=== PATIENT | female | born 1960 | race Caucasian/White ===

== ENCOUNTER 2017-06-11 21:55 | Emergency (ER) | payer MEDICAID ==
[~2017-06-11] VITALS: Ht 167.6 cm; Wt 68.0 kg
[~2017-06-11 21:55] MED LIST: DICL50TA9 PO; HYDR25TA PO
[2017-06-11 22:00] VITALS: BP 143/80
== END 2017-06-12 01:40 | disposition left against medical advice (07) ==
LOC: ER 22:54
DX: Z53.21 Procedure and treatment not carried out due to patient leaving prior to being seen by health care provider (principal); F17.210 Nicotine dependence, cigarettes, uncomplicated

== ENCOUNTER 2018-06-10 00:01 | Emergency (ER) | payer MEDICAID ==
[~2018-06-10] VITALS: Ht 160 cm; Wt 63.5 kg
[2018-06-10] MEDS ORDERED: MORPHINE SULFATE 4 MG/ML CPJ (NOT FOR IM USE) IV STA (02:43)
[2018-06-10] MEDS ORDERED: ONDANSETRON HCL 4MG/2ML VIAL IV STA (02:43)
[2018-06-10] MEDS ORDERED: FAMOTIDINE 20MG/2ML VIAL IV STA (02:43)
[2018-06-10] MEDS ORDERED: SODIUM CHLORIDE 0.9% 1,000 ML IV ONE (02:43)
[2018-06-10 02:55] LABS: BASOPHILS % 1.4 % (0.0-2.0); CHLORIDE 101 mEq/L (98-107); EOSINOPHILS % 2.1 % (0.0-5.0); HEMATOCRIT. 40.2 % (36.0-48.0); HEMOGLOBIN. 13.8 g/dL (12.0-16.0); LYMPHOCYTES % 50.3 % (20.0-50.0); MEAN CORPUSCULAR HEMOGLOBIN 33.2 pg (28.0-32.0); MEAN PLATELET VOLUME 8.4 fl (7.4-10.4); MONOCYTES % 9.6 % (2.0-8.0); NEUTROPHILS % 36.6 % (40.0-76.0); PLATELET 162 x1000/uL (130-400); RED BLOOD CELL COUNT 4.15 mill/uL (4.2-5.4); RED CELL DISTRIBUTION WIDTH 13.5 % (11.6-14.6)
[2018-06-10 03:45] LABS: CLARITY URINE CLEAR (CLEAR); COLOR URINE YELLOW (YELLOW); KETONES URINE NEGATIVE (NEGATIVE); LEUKOCYTE ESTERASE URINE NEGATIVE (NEGATIVE); NITRITE URINE NEGATIVE (NEGATIVE); OCCULT BLOOD URINE NEGATIVE (NEGATIVE); PROTEIN URINE NEGATIVE (NEGATIVE); SPECIFIC GRAVITY URINE 1.006 (1.005-1.030); UROBILINOGEN URINE 0.2 E.U./dL (0.2-1.0)
[2018-06-10 05:51] VITALS: BP 174/97
== END 2018-06-10 05:53 | disposition home or self-care (01) ==
LOC: ER 00:01
DX: R10.13 Epigastric pain (principal); R19.7 Diarrhea, unspecified; K76.0 Fatty (change of) liver, not elsewhere classified; Q61.01 Congenital single renal cyst; K21.9 Gastro-esophageal reflux disease without esophagitis; I10 Essential (primary) hypertension; I44.7 Left bundle-branch block, unspecified; F14.10 Cocaine abuse, uncomplicated; Z90.12 Acquired absence of left breast and nipple; Z88.1 Allergy status to other antibiotic agents; Z88.5 Allergy status to narcotic agent; Z85.3 Personal history of malignant neoplasm of breast; Z87.891 Personal history of nicotine dependence; F10.21 Alcohol dependence, in remission
CPT/HCPCS: 36415; 71045; 74177; 80053; 81003; 83605; 83690; 85025; 93005; 96361; 96374; 96375; 99285; J2270; J2405; J3490; J7030; Z7610

== ENCOUNTER 2018-11-26 02:43 | Emergency (ER) | payer MEDICAID ==
[~2018-11-26] VITALS: Ht 167.6 cm; Wt 63.0 kg
[2018-11-26] MEDS ORDERED: SODIUM CHLORIDE 0.9% 1,000 ML IV ONE (03:53)
[2018-11-26] MEDS ORDERED: LORAZEPAM 1MG TABLET PO ONE (04:00)
[2018-11-26 04:35] LABS: BASOPHILS % 1.2 % (0.0-2.0); EOSINOPHILS % 1.7 % (0.0-5.0); HEMATOCRIT. 42.5 % (36.0-48.0); HEMOGLOBIN. 14.4 g/dL (12.0-16.0); LYMPHOCYTES % 47.5 % (20.0-50.0); MEAN CORPUSCULAR HEMOGLOBIN 32.7 pg (28.0-32.0); MEAN CORPUSCULAR VOLUME 96.8 fL (81.0-99.0); MONOCYTES % 7.6 % (2.0-8.0); PLATELET 246 x1000/uL (130-400); RED BLOOD CELL COUNT 4.39 mill/uL (4.2-5.4); RED CELL DISTRIBUTION WIDTH 13.1 % (11.6-14.6)
[2018-11-26 04:44] LABS: CLARITY URINE CLEAR (CLEAR); COLOR URINE YELLOW (YELLOW); KETONES URINE NEGATIVE (NEGATIVE); LEUKOCYTE ESTERASE URINE NEGATIVE (NEGATIVE); NITRITE URINE NEGATIVE (NEGATIVE); OCCULT BLOOD URINE NEGATIVE (NEGATIVE); PROTEIN URINE NEGATIVE (NEGATIVE); SPECIFIC GRAVITY URINE 1.006 (1.005-1.030); UROBILINOGEN URINE 0.2 E.U./dL (0.2-1.0)
[2018-11-26 04:46] LABS: D-DIMER < 0.19 mg/L FEU (<0.50); INR 1.2; PROTHROMBIN TIME 12.3 sec (9.1-11.1)
[2018-11-26] MEDS ORDERED: LORAZEPAM 1MG TABLET PO NR (05:00)
[2018-11-26 05:01] LABS: CHLORIDE 102 mEq/L (98-107)
[2018-11-26 05:08] LABS: ETHANOL BLOOD 176 mg/dL
[2018-11-26 05:22] LABS: *AMPHETAMINES SCREEN URINE NEGATIVE (NEGATIVE); *BARBITURATES SCREEN URINE NEGATIVE (NEGATIVE)
[2018-11-26 05:23] LABS: *BENZODIAZEPINES SCREEN URINE NEGATIVE (NEGATIVE); *COCAINE SCREEN URINE PRESUMTIVE POSITIVE (NEGATIVE); METHADONE URINE SCREEN NEGATIVE (NEGATIVE); OPIATES URINE SCREEN NEGATIVE (NEGATIVE); PHENCYCLIDINE URINE SCREEN NEGATIVE (NEGATIVE)
[2018-11-26 05:24] LABS: CANNABINOID URINE SCREEN NEGATIVE (NEGATIVE)
[2018-11-26] MEDS ORDERED: ACETAMINOPHEN 325MG TABLET PO ONE (11:15)
[2018-11-26 15:30] VITALS: BP 163/72
== END 2018-11-26 15:53 | disposition home or self-care (01) ==
LOC: ER 02:43
DX: R07.89 Other chest pain (principal); R06.00 Dyspnea, unspecified; F41.9 Anxiety disorder, unspecified; I10 Essential (primary) hypertension; F14.10 Cocaine abuse, uncomplicated; Z90.12 Acquired absence of left breast and nipple; Z87.891 Personal history of nicotine dependence; Z88.5 Allergy status to narcotic agent; Z88.1 Allergy status to other antibiotic agents; Z79.899 Other long term (current) drug therapy
CPT/HCPCS: 36415; 71045; 80053; 80305; 80307; 80329; 81003; 83880; 84484; 85025; 85379; 85610; 99284; G0482; J7030

== ENCOUNTER 2019-02-06 02:13 | Emergency (ER) | payer MEDICAID ==
[~2019-02-06] VITALS: Ht 167.6 cm; Wt 64.0 kg
[2019-02-06] MEDS ORDERED: LORAZEPAM 1MG TABLET PO ONE (04:15)
[2019-02-06 04:17] LABS: CLARITY URINE CLEAR (CLEAR); COLOR URINE YELLOW (YELLOW); KETONES URINE NEGATIVE (NEGATIVE); LEUKOCYTE ESTERASE URINE 1+ (NEGATIVE); NITRITE URINE NEGATIVE (NEGATIVE); OCCULT BLOOD URINE NEGATIVE (NEGATIVE); PH URINE 7.5 (4.5-8.0); PROTEIN URINE NEGATIVE (NEGATIVE); SPECIFIC GRAVITY URINE 1.006 (1.005-1.030); UROBILINOGEN URINE 0.2 E.U./dL (0.2-1.0)
[2019-02-06 04:21] LABS: BASOPHILS % 1.1 % (0.0-2.0); EOSINOPHILS % 0.4 % (0.0-5.0); HEMATOCRIT. 38.3 % (36.0-48.0); HEMOGLOBIN. 13.3 g/dL (12.0-16.0); LYMPHOCYTES % 42.8 % (20.0-50.0); MEAN CORPUSCULAR HEMOGLOBIN 34.3 pg (28.0-32.0); MEAN CORPUSCULAR VOLUME 98.8 fL (81.0-99.0); MEAN PLATELET VOLUME 8.5 fl (7.4-10.4); MONOCYTES % 7.5 % (2.0-8.0); NEUTROPHILS % 48.2 % (40.0-76.0); PLATELET 182 x1000/uL (130-400); RED BLOOD CELL COUNT 3.88 mill/uL (4.2-5.4)
[2019-02-06 04:24] LABS: CHLORIDE 102 mEq/L (98-107)
[2019-02-06 04:29] LABS: ETHANOL BLOOD 154 mg/dL
[2019-02-06 04:38] LABS: *AMPHETAMINES SCREEN URINE PRESUMTIVE POSITIVE (NEGATIVE); *BARBITURATES SCREEN URINE NEGATIVE (NEGATIVE); *BENZODIAZEPINES SCREEN URINE NEGATIVE (NEGATIVE); *COCAINE SCREEN URINE PRESUMTIVE POSITIVE (NEGATIVE); CANNABINOID URINE SCREEN NEGATIVE (NEGATIVE)
[2019-02-06 04:39] LABS: METHADONE URINE SCREEN NEGATIVE (NEGATIVE); OPIATES URINE SCREEN NEGATIVE (NEGATIVE); PHENCYCLIDINE URINE SCREEN NEGATIVE (NEGATIVE)
[2019-02-06] MEDS ORDERED: IBUPROFEN 600MG TABLET PO STA (08:37)
[2019-02-06 10:07] VITALS: BP 134/71
== END 2019-02-06 11:53 | disposition home or self-care (01) ==
LOC: ER 02:13
DX: F19.10 Other psychoactive substance abuse, uncomplicated (principal); F10.129 Alcohol abuse with intoxication, unspecified; Y90.6 Blood alcohol level of 120-199 mg/100 ml; N39.0 Urinary tract infection, site not specified; F41.9 Anxiety disorder, unspecified; I10 Essential (primary) hypertension; F17.200 Nicotine dependence, unspecified, uncomplicated
CPT/HCPCS: 36415; 80305; 80307; 80320; 80329; 82962; 99283; G0480

== ENCOUNTER 2019-03-28 21:55 | Emergency (ER) | payer MEDICAID ==
[~2019-03-28] VITALS: Ht 165.1 cm; Wt 64.0 kg
[2019-03-28] MEDS ORDERED: CALCIUM GLUCONATE 100MG/ML 10ML VIAL IV ONE (23:30)
[2019-03-28] MEDS ORDERED: ASPIRIN 325MG EC TABLET PO ONE (23:30)
[2019-03-28 23:47] LABS: BASOPHILS % 0.8 % (0.0-2.0); HEMATOCRIT. 35.5 % (36.0-48.0); HEMOGLOBIN. 12.6 g/dL (12.0-16.0); LYMPHOCYTES % 27.7 % (20.0-50.0); MEAN CORPUSCULAR HEMOGLOBIN 35.6 pg (28.0-32.0); MEAN CORPUSCULAR VOLUME 100.4 fL (81.0-99.0); MEAN PLATELET VOLUME 8.4 fl (7.4-10.4); MONOCYTES % 11.2 % (2.0-8.0); NEUTROPHILS % 59.3 % (40.0-76.0); PLATELET 159 x1000/uL (130-400); RED BLOOD CELL COUNT 3.53 mill/uL (4.2-5.4); RED CELL DISTRIBUTION WIDTH 13.2 % (11.6-14.6)
[2019-03-28 23:52] LABS: CHLORIDE 105 mEq/L (98-107)
[2019-03-29 02:51] VITALS: BP 144/101
== END 2019-03-29 02:54 | disposition home or self-care (01) ==
LOC: ER 21:55
DX: F41.9 Anxiety disorder, unspecified (principal); R07.89 Other chest pain; I10 Essential (primary) hypertension; F14.10 Cocaine abuse, uncomplicated; Z90.10 Acquired absence of unspecified breast and nipple; Z88.5 Allergy status to narcotic agent; Z88.1 Allergy status to other antibiotic agents; Z79.899 Other long term (current) drug therapy
CPT/HCPCS: 36415; 71045; 80053; 83880; 84443; 84484; 85025; 93005; 96374; 99284; J0610; Z7610

== ENCOUNTER 2020-03-18 05:35 | Inpatient (IN) | payer MEDICAID ==
[~2020-03-18] VITALS: Ht 162.6 cm; Wt 54.4 kg
[2020-03-18] MEDS ORDERED: ACETAMINOPHEN 325MG TABLET PO ONE (07:45)
[2020-03-18] MEDS ORDERED: CHLORDIAZEPOXIDE 25MG CAPSULE PO ONE (07:45)
[2020-03-18] MEDS ORDERED: DIPHENHYDRAMINE 50MG/ML VIAL IV ONE ×2 (07:45→10:30)
[2020-03-18 08:09] LABS: BASOPHILS % 1.8 % (0.0-2.0); EOSINOPHILS % 1.9 % (0.0-5.0); HEMATOCRIT. 38.4 % (36.0-48.0); HEMOGLOBIN. 13.1 g/dL (12.0-16.0); LYMPHOCYTES % 20.3 % (20.0-50.0); MEAN CORPUSCULAR VOLUME 99.3 fL (81.0-99.0); MEAN PLATELET VOLUME 8.4 fl (7.4-10.4); MONOCYTES % 9.6 % (2.0-8.0); NEUTROPHILS % 66.4 % (40.0-76.0); PLATELET 197 x1000/uL (130-400); RED BLOOD CELL COUNT 3.86 mill/uL (4.2-5.4); RED CELL DISTRIBUTION WIDTH 13.8 % (11.6-14.6)
[2020-03-18 08:12] LABS: CHLORIDE 104 mEq/L (98-107)
[2020-03-18] MEDS ORDERED: CEFTRIAXONE 1 G PREMIX 50 ML IV ONE (09:15)
[2020-03-18] MEDS ORDERED: AZITHROMYCIN 500 MG in DEXT 5% WATER 250 ML IV SCH (09:15)
[2020-03-18] MEDS ORDERED: ASPIRIN 325MG EC TABLET PO ONE (09:30)
[2020-03-18] MEDS ORDERED: ACETAMINOPHEN 325MG TABLET PO PRN (09:45)
[2020-03-18] MEDS ORDERED: CLONIDINE 0.1MG TABLET PO PRN (09:45)
[2020-03-18] MEDS ORDERED: IPRATROPIUM/ALBUTEROL 0.5-3(2.5)MG/3ML NEB HHN PRN (09:45)
[2020-03-18] MEDS ORDERED: ONDANSETRON HCL 4MG/2ML INJ IV PRN (09:45)
[2020-03-18 09:57] LABS: PHOSPHORUS 3.1 mg/dL (2.5-4.9)
[2020-03-18 13:40] VITALS: BP 154/102
[2020-03-18] MEDS ORDERED: LORAZEPAM 2MG/ML CPJ IV PRN (13:45)
[2020-03-18] MEDS ORDERED: ASPIRIN 81MG EC TABLET PO SCH (13:45)
[2020-03-18] MEDS: ENOXAPARIN 40MG/0.4ML SYR SUBCUT SCH (14:53)
[2020-03-18] MEDS: FUROSEMIDE 40MG/4ML VIAL IVP SCH ×2 (14:53→21:01)
[2020-03-18] MEDS: THIAMINE HCL 100MG TABLET PO SCH (14:54)
[2020-03-18] MEDS: POTASSIUM CHLORIDE 20MEQ TABLET SR PO SCH (14:54)
[2020-03-18] MEDS: CHLORDIAZEPOXIDE 25MG CAPSULE PO SCH ×2 (14:54→20:56)
[2020-03-18] MEDS: DIPHENHYDRAMINE 50MG/ML VIAL IV PRN (16:21)
[2020-03-18] MEDS: MULTIVITAMINS,THER W-MINERALS TABLET PO SCH (16:21)
[2020-03-18] MEDS: FOLIC ACID 1MG TABLET PO SCH (16:21)
[2020-03-18] MEDS: HYDROCODONE/ACETAMINOPHEN 5/325MG TABLET PO PRN (17:23)
[2020-03-18 20:00] VITALS: BP 134/99
[2020-03-18] MEDS: AMLODIPINE 5MG TABLET PO SCH (20:57)
[2020-03-18] MEDS: ATORVASTATIN CALCIUM 20MG TABLET PO SCH (20:57)
[2020-03-18 21:48] LABS: CLARITY URINE CLEAR (CLEAR); COLOR URINE YELLOW (YELLOW); KETONES URINE NEGATIVE (NEGATIVE); LEUKOCYTE ESTERASE URINE NEGATIVE (NEGATIVE); NITRITE URINE NEGATIVE (NEGATIVE); OCCULT BLOOD URINE NEGATIVE (NEGATIVE); PROTEIN URINE NEGATIVE (NEGATIVE); SPECIFIC GRAVITY URINE 1.006 (1.005-1.030); UROBILINOGEN URINE 0.2 E.U./dL (0.2-1.0)
[2020-03-18 22:01] LABS: *AMPHETAMINES SCREEN URINE NEGATIVE (NEGATIVE); *BARBITURATES SCREEN URINE NEGATIVE (NEGATIVE); *BENZODIAZEPINES SCREEN URINE NEGATIVE (NEGATIVE); *COCAINE SCREEN URINE PRESUMTIVE POSITIVE (NEGATIVE)
[2020-03-18 22:02] LABS: CANNABINOID URINE SCREEN NEGATIVE (NEGATIVE); METHADONE URINE SCREEN NEGATIVE (NEGATIVE); OPIATES URINE SCREEN NEGATIVE (NEGATIVE); PHENCYCLIDINE URINE SCREEN NEGATIVE (NEGATIVE)
[2020-03-19] VITALS: BP 135/92
[2020-03-19 04:00] VITALS: BP 114/78
[2020-03-19] MEDS: CHLORDIAZEPOXIDE 25MG CAPSULE PO SCH ×3 (06:14→21:22)
[2020-03-19 07:20] LABS: BASOPHILS % 1.5 % (0.0-2.0); HEMATOCRIT. 40.6 % (36.0-48.0); HEMOGLOBIN. 13.5 g/dL (12.0-16.0); LYMPHOCYTES % 31.6 % (20.0-50.0); MEAN CORPUSCULAR HEMOGLOBIN 33.2 pg (28.0-32.0); MEAN CORPUSCULAR VOLUME 99.9 fL (81.0-99.0); MEAN PLATELET VOLUME 8.1 fl (7.4-10.4); MONOCYTES % 9.8 % (2.0-8.0); NEUTROPHILS % 54.1 % (40.0-76.0); PLATELET 185 x1000/uL (130-400); RED BLOOD CELL COUNT 4.06 mill/uL (4.2-5.4); RED CELL DISTRIBUTION WIDTH 13.9 % (11.6-14.6)
[2020-03-19 07:38] LABS: CHLORIDE 107 mEq/L (98-107)
[2020-03-19 07:51] LABS: TOTAL IRON BINDING CAPACITY 470 ug/dL (250-450)
[2020-03-19 07:52] LABS: LDL CHOLESTEROL 55 mg/dL (5-100)
[2020-03-19 07:53] LABS: HDL CHOLESTEROL 33 mg/dL (40-59)
[2020-03-19 08:00] VITALS: BP 118/74
[2020-03-19 08:08] LABS: VITAMIN B12 SERUM 516 pg/mL (211-911)
[2020-03-19] MEDS: FUROSEMIDE 40MG/4ML VIAL IVP SCH ×2 (09:25→19:04)
[2020-03-19] MEDS: POTASSIUM CHLORIDE 20MEQ TABLET SR PO SCH (09:25)
[2020-03-19] MEDS: AZITHROMYCIN 250 MG TABLET PO SCH (09:26)
[2020-03-19] MEDS: FOLIC ACID 1MG TABLET PO SCH (09:26)
[2020-03-19] MEDS: AMLODIPINE 5MG TABLET PO SCH ×2 (09:26→21:23)
[2020-03-19] MEDS: THIAMINE HCL 100MG TABLET PO SCH (09:26)
[2020-03-19] MEDS: ASPIRIN 81MG EC TABLET PO SCH (09:26)
[2020-03-19] MEDS: MULTIVITAMINS,THER W-MINERALS TABLET PO SCH (09:26)
[2020-03-19] MEDS: CEFTRIAXONE 1 G PREMIX 50 ML IV SCH (09:27)
[2020-03-19] MEDS: DIPHENHYDRAMINE 50MG/ML VIAL IV PRN (10:27)
[2020-03-19] MEDS: FERROUS SULFATE 325MG TABLET PO SCH ×2 (11:58→19:04)
[2020-03-19 12:00] VITALS: BP 120/88
[2020-03-19] MEDS: ENOXAPARIN 40MG/0.4ML SYR SUBCUT SCH (13:55)
[2020-03-19 16:00] VITALS: BP_SYST 118; BP_SYST 120; BP_DIAS 69; BP_DIAS 88
[2020-03-19] MEDS: HYDROCODONE/ACETAMINOPHEN 5/325MG TABLET PO PRN (19:58)
[2020-03-19 20:30] VITALS: BP 163/109
[2020-03-19] MEDS ORDERED: MAGNESIUM HYDROXIDE 400MG/5ML 30ML UDC PO PRN (21:15)
[2020-03-19] MEDS: ATORVASTATIN CALCIUM 20MG TABLET PO SCH (21:23)
[2020-03-19] MEDS ORDERED: MORPHINE SULFATE 2 MG/ML CPJ (NOT FOR IM USE) IV SCH (21:30)
[2020-03-19] MEDS ORDERED: MORPHINE SULFATE 2 MG/ML CPJ (NOT FOR IM USE) IV PRN (21:30)
[2020-03-20] VITALS: BP 123/83
[2020-03-20] MEDS: DIPHENHYDRAMINE 50MG/ML VIAL IV PRN ×2 (02:18→08:51)
[2020-03-20 04:00] VITALS: BP 109/69
[2020-03-20] MEDS: CHLORDIAZEPOXIDE 25MG CAPSULE PO SCH ×3 (06:05→21:28)
[2020-03-20] MEDS: FERROUS SULFATE 325MG TABLET PO SCH ×2 (07:07→16:38)
[2020-03-20 08:00] VITALS: BP 120/90
[2020-03-20 08:03] LABS: BASOPHILS % 0.9 % (0.0-2.0); EOSINOPHILS % 1.2 % (0.0-5.0); HEMATOCRIT. 41.3 % (36.0-48.0); HEMOGLOBIN. 13.8 g/dL (12.0-16.0); LYMPHOCYTES % 16.4 % (20.0-50.0); MEAN CORPUSCULAR HEMOGLOBIN 33.4 pg (28.0-32.0); MEAN CORPUSCULAR VOLUME 99.7 fL (81.0-99.0); MEAN PLATELET VOLUME 8.4 fl (7.4-10.4); MONOCYTES % 11.6 % (2.0-8.0); NEUTROPHILS % 69.9 % (40.0-76.0); PLATELET 213 x1000/uL (130-400); RED BLOOD CELL COUNT 4.15 mill/uL (4.2-5.4); RED CELL DISTRIBUTION WIDTH 13.8 % (11.6-14.6)
[2020-03-20] MEDS: MULTIVITAMINS,THER W-MINERALS TABLET PO SCH (08:52)
[2020-03-20] MEDS: POTASSIUM CHLORIDE 20MEQ TABLET SR PO SCH (08:52)
[2020-03-20] MEDS: ASPIRIN 81MG EC TABLET PO SCH (08:52)
[2020-03-20] MEDS: AZITHROMYCIN 250 MG TABLET PO SCH (08:52)
[2020-03-20] MEDS: FUROSEMIDE 40MG/4ML VIAL IVP SCH ×2 (08:52→16:38)
[2020-03-20] MEDS: THIAMINE HCL 100MG TABLET PO SCH (08:52)
[2020-03-20] MEDS: FOLIC ACID 1MG TABLET PO SCH (08:52)
[2020-03-20] MEDS: AMLODIPINE 5MG TABLET PO SCH ×2 (08:53→21:00)
[2020-03-20] MEDS: CEFTRIAXONE 1 G PREMIX 50 ML IV SCH (09:00)
[2020-03-20] MEDS ORDERED: CEFTRIAXONE 1 G PREMIX 50 ML IV SCH (09:15)
[2020-03-20] MEDS: NITROGLYCERIN OINT 1GM/INCH UDPKT TD SCH ×3 (10:25→21:29)
[2020-03-20] MEDS ORDERED: POTASSIUM CHLORIDE 20MEQ TABLET SR PO NR (11:15)
[2020-03-20 12:00] VITALS: BP 129/90
[2020-03-20 16:00] VITALS: BP 134/87
[2020-03-20 20:00] VITALS: BP 101/54
[2020-03-20] MEDS ORDERED: ENOXAPARIN 60MG/0.6ML SYR SUBCUT NR (21:00)
[2020-03-20] MEDS: ATORVASTATIN CALCIUM 20MG TABLET PO SCH (21:28)
[2020-03-21] VITALS (13 sets, daily range): BP systolic 77–128; BP diastolic 22–98
[2020-03-21] MEDS: CHLORDIAZEPOXIDE 25MG CAPSULE PO SCH ×2 (05:54→14:33)
[2020-03-21] MEDS: NITROGLYCERIN OINT 1GM/INCH UDPKT TD SCH ×2 (06:17→14:00)
[2020-03-21] MEDS: FERROUS SULFATE 325MG TABLET PO SCH (06:17)
[2020-03-21 07:46] LABS: BASOPHILS % 1.4 % (0.0-2.0); EOSINOPHILS % 2.4 % (0.0-5.0); HEMATOCRIT. 42.8 % (36.0-48.0); HEMOGLOBIN. 14.2 g/dL (12.0-16.0); LYMPHOCYTES % 19.5 % (20.0-50.0); MEAN CORPUSCULAR HEMOGLOBIN 33.1 pg (28.0-32.0); MEAN CORPUSCULAR VOLUME 99.9 fL (81.0-99.0); MONOCYTES % 6.8 % (2.0-8.0); NEUTROPHILS % 69.9 % (40.0-76.0); PLATELET 209 x1000/uL (130-400); RED BLOOD CELL COUNT 4.29 mill/uL (4.2-5.4); RED CELL DISTRIBUTION WIDTH 14.4 % (11.6-14.6)
[2020-03-21 07:58] LABS: PHOSPHORUS 3.3 mg/dL (2.5-4.9)
[2020-03-21] MEDS ORDERED: SODIUM CHLORIDE 0.45% 1,000 ML IV SCH (08:00)
[2020-03-21] MEDS: FUROSEMIDE 40MG/4ML VIAL IVP SCH (08:23)
[2020-03-21] MEDS: MULTIVITAMINS,THER W-MINERALS TABLET PO SCH (09:00)
[2020-03-21] MEDS: POTASSIUM CHLORIDE 20MEQ TABLET SR PO SCH (09:00)
[2020-03-21] MEDS: FOLIC ACID 1MG TABLET PO SCH (09:00)
[2020-03-21] MEDS: ASPIRIN 81MG EC TABLET PO SCH (09:00)
[2020-03-21] MEDS: THIAMINE HCL 100MG TABLET PO SCH (09:00)
[2020-03-21] MEDS: AMLODIPINE 5MG TABLET PO SCH (09:00)
[2020-03-21] MEDS ORDERED: IOHEXOL-300 100 ML BOTTLE ONE (09:21)
[2020-03-21] MEDS ORDERED: LIDOCAINE HCL 1% 20ML VIAL (Pyxis) INJ ONE (09:22)
[2020-03-21] MEDS ORDERED: MIDAZOLAM HCL 2 MG/2 ML VIAL ONE ×2 (09:23→10:28)
[2020-03-21] MEDS ORDERED: FENTANYL CITRATE/PF 50MCG/ML 2ML VIAL ONE (09:23)
[2020-03-21] MEDS ORDERED: ONDANSETRON HCL 4MG/2ML INJ IV PRN (10:45)
[2020-03-21] MEDS ORDERED: ATROPINE SULFATE 1MG/10ML SYR IV PRN (10:45)
[2020-03-21] MEDS ORDERED: ACETAMINOPHEN 325MG TABLET PO PRN (10:45)
[2020-03-21] MEDS ORDERED: MAGNESIUM OXIDE 400MG TABLET PO SCH (13:00)
[2020-03-21] MEDS ORDERED: IRON SUCROSE COMPLEX 100 MG/5 ML ML IV SCH (13:00)
[2020-03-21] MEDS ORDERED: FURO40TA5 MT (15:17)
[2020-03-21] MEDS ORDERED: MULT-230 MT (15:17)
[2020-03-21] MEDS ORDERED: FERR325T23 PO (15:17)
[2020-03-21] MEDS ORDERED: THIA100T72 MT (15:17)
[2020-03-21] MEDS ORDERED: AMLO5TAB88 PO (15:17)
[2020-03-21] MEDS ORDERED: ATOR20TA PO (15:17)
[2020-03-21] MEDS ORDERED: ASPI-1158 PO (15:17)
== END 2020-03-21 17:46 | disposition left against medical advice (07) | DRG 720 ==
LOC: ER 05:50 → 7WST 09:30 → EDBEDREQ 09:37 → ENRESERV 12:24 → 5WST 03-20 00:27 → 3WST 03-21 11:39
PROVIDERS: ADMIT Internal Medicine; ATTEND Internal Medicine
PROC: 4A023N7 Measurement of Cardiac Sampling and Pressure, Left Heart, Percutaneous Approach (ICD-10-PCS; principal; 2020-03-21)
PROC: B2111ZZ Fluoroscopy of Multiple Coronary Arteries using Low Osmolar Contrast (ICD-10-PCS; 2020-03-21)
PROC: B2151ZZ Fluoroscopy of Left Heart using Low Osmolar Contrast (ICD-10-PCS; 2020-03-21)
DX: A41.9 Sepsis, unspecified organism (principal); J96.00 Acute respiratory failure, unspecified whether with hypoxia or hypercapnia; I21.4 Non-ST elevation (NSTEMI) myocardial infarction; I50.23 Acute on chronic systolic (congestive) heart failure; I42.0 Dilated cardiomyopathy; D50.9 Iron deficiency anemia, unspecified; F10.20 Alcohol dependence, uncomplicated; I11.0 Hypertensive heart disease with heart failure; J68.0 Bronchitis and pneumonitis due to chemicals, gases, fumes and vapors; E87.6 Hypokalemia; F14.90 Cocaine use, unspecified, uncomplicated; F41.9 Anxiety disorder, unspecified; I44.7 Left bundle-branch block, unspecified; T40.5X1A Poisoning by cocaine, accidental (unintentional), initial encounter; R56.9 Unspecified convulsions; Z85.3 Personal history of malignant neoplasm of breast; Z90.12 Acquired absence of left breast and nipple; Z91.14 Patient's other noncompliance with medication regimen; Z88.5 Allergy status to narcotic agent; Z88.8 Allergy status to other drugs, medicaments and biological substances; Z79.899 Other long term (current) drug therapy; Z03.818 Encounter for observation for suspected exposure to other biological agents ruled out; Y92.89 Other specified places as the place of occurrence of the external cause
CPT/HCPCS: 36415; 71045; 80048; 80053; 80061; 80305; 81003; 82607; 82728; 83540; 83550; 83735; 83880; 84100; 84443; 84484; 85025; 93005; 93306; 93458; 93970; 99285; C1760; C1769; C1887; C1893; J0456; J0696; J1200; J1644; J1650; J1940; J2060; J2250; J2270; J2405; J3010; J3490; J7060; Q9967; U0003-CS

== ENCOUNTER 2020-08-17 21:57 | Emergency (ER) | payer MEDICAID ==
[~2020-08-17] VITALS: Ht 167.6 cm; Wt 84.0 kg
[~2020-08-17 21:57] MED LIST changes: +AMLO5TAB88 PO; +ASPI-1158 PO; +ATOR20TA PO; +FERR325T23 PO; +FURO40TA5 MT; +MULT-230 MT; +THIA100T72 MT
[2020-08-17 22:02] VITALS: BP 137/77
== END 2020-08-17 22:47 | disposition left against medical advice (07) ==
LOC: ER 21:57
DX: Z53.21 Procedure and treatment not carried out due to patient leaving prior to being seen by health care provider (principal)

== ENCOUNTER 2022-08-21 16:40 | Inpatient (IN) | payer MEDICAID ==
[~2022-08-21] VITALS: Ht 152.4 cm; Wt 75.3 kg
[~2022-08-21 16:40] MED LIST changes: -ASPI-1158 PO; +ASPI-1406 PO
[2022-08-21 17:56] LABS: BASOPHILS % 0.9 % (0.0-2.0); EOSINOPHILS % 2.3 % (0.0-5.0); HEMATOCRIT. 36.6 % (36.0-48.0); HEMOGLOBIN. 12.4 g/dL (12.0-16.0); LYMPHOCYTES % 22.9 % (20.0-50.0); MEAN CORPUSCULAR HEMOGLOBIN 34.6 pg (28.0-32.0); MEAN CORPUSCULAR VOLUME 102.2 fL (81.0-99.0); MEAN PLATELET VOLUME 8.3 fl (7.4-10.4); MONOCYTES % 7.7 % (2.0-8.0); NEUTROPHILS % 66.2 % (40.0-76.0); PLATELET 163 x1000/uL (130-400); RED BLOOD CELL COUNT 3.58 mill/uL (4.2-5.4); RED CELL DISTRIBUTION WIDTH 13.6 % (11.6-14.6)
[2022-08-21 17:59] LABS: CHLORIDE 104 mEq/L (98-107)
[2022-08-21 18:10] LABS: ETHANOL BLOOD 207 mg/dL
[2022-08-21] MEDS ORDERED: FUROSEMIDE 20MG/2ML VIAL IVP ONE (19:00)
[2022-08-21 19:01] LABS: *AMPHETAMINES SCREEN URINE NEGATIVE (NEGATIVE); *BARBITURATES SCREEN URINE NEGATIVE (NEGATIVE); *BENZODIAZEPINES SCREEN URINE NEGATIVE (NEGATIVE); *COCAINE SCREEN URINE PRESUMTIVE POSITIVE (NEGATIVE); CANNABINOID URINE SCREEN NEGATIVE (NEGATIVE); METHADONE URINE SCREEN NEGATIVE (NEGATIVE); OPIATES URINE SCREEN NEGATIVE (NEGATIVE); PHENCYCLIDINE URINE SCREEN NEGATIVE (NEGATIVE)
[2022-08-21] MEDS ORDERED: POTASSIUM CHLORIDE 20MEQ TABLET SR PO NR ×2 (19:30→21:45)
[2022-08-21] MEDS ORDERED: FUROSEMIDE 20MG/2ML VIAL IVP NR (22:00)
[2022-08-22] VITALS (7 sets, daily range): BP systolic 117–189; BP diastolic 86–108
[2022-08-22] MEDS ORDERED: PNEUMOCOCCAL 23-VAL P-SAC VAC 0.5 ML IM ONE (05:00)
[2022-08-22] MEDS ORDERED: INFLUENZA VACCINE 05/PF 0.5 ML SYRINGE IM ONE (05:00)
[2022-08-22] MEDS ORDERED: HYDROCODONE/ACETAMINOPHEN 5/325MG TABLET PO PRN (05:00)
[2022-08-22] MEDS ORDERED: CLONIDINE 0.1MG TABLET PO PRN (05:00)
[2022-08-22] MEDS ORDERED: POTASSIUM CHLORIDE 20MEQ TABLET SR PO NR (10:00)
[2022-08-22] MEDS: FUROSEMIDE 40MG/4ML VIAL IVP SCH ×2 (11:00→17:30)
[2022-08-22] MEDS: AMLODIPINE 10MG TABLET PO SCH (11:00)
[2022-08-22] MEDS: SPIRONOLACTONE 50MG TABLET PO SCH (11:01)
[2022-08-22] MEDS: HYDRALAZINE HCL 25MG TABLET PO SCH ×2 (13:15→21:37)
[2022-08-22] MEDS: SACUBITRIL/VALSARTAN 24MG/26MG TABLET PO SCH ×2 (13:15→17:30)
[2022-08-22 13:53] LABS: BASOPHILS % 0.8 % (0.0-2.0); HEMATOCRIT. 41.8 % (36.0-48.0); HEMOGLOBIN. 14.1 g/dL (12.0-16.0); LYMPHOCYTES % 20.5 % (20.0-50.0); MEAN CORPUSCULAR HEMOGLOBIN 34.2 pg (28.0-32.0); MEAN CORPUSCULAR VOLUME 101.3 fL (81.0-99.0); MEAN PLATELET VOLUME 8.9 fl (7.4-10.4); MONOCYTES % 6.5 % (2.0-8.0); NEUTROPHILS % 69.2 % (40.0-76.0); PLATELET 185 x1000/uL (130-400); RED BLOOD CELL COUNT 4.12 mill/uL (4.2-5.4)
[2022-08-22] MEDS: FOLIC ACID 1MG TABLET PO SCH (17:30)
[2022-08-22] MEDS: PANTOPRAZOLE 40MG DR TABLET PO SCH (17:31)
[2022-08-22] MEDS: MULTIVITAMINS,THER W-MINERALS TABLET PO SCH (17:31)
[2022-08-22] MEDS: THIAMINE HCL 100MG TABLET PO SCH (17:31)
[2022-08-23] VITALS: BP 117/90
[2022-08-23 04:00] VITALS: BP 134/93
[2022-08-23 06:26] LABS: BASOPHILS % 0.8 % (0.0-2.0); EOSINOPHILS % 2.9 % (0.0-5.0); HEMATOCRIT. 46.6 % (36.0-48.0); HEMOGLOBIN. 15.7 g/dL (12.0-16.0); LYMPHOCYTES % 21.5 % (20.0-50.0); MEAN CORPUSCULAR HEMOGLOBIN 34.4 pg (28.0-32.0); MEAN CORPUSCULAR VOLUME 101.9 fL (81.0-99.0); MEAN PLATELET VOLUME 9.1 fl (7.4-10.4); MONOCYTES % 6.7 % (2.0-8.0); NEUTROPHILS % 68.1 % (40.0-76.0); PLATELET 201 x1000/uL (130-400); RED BLOOD CELL COUNT 4.57 mill/uL (4.2-5.4); RED CELL DISTRIBUTION WIDTH 14.2 % (11.6-14.6)
[2022-08-23] MEDS ORDERED: HYDROCODONE/ACETAMINOPHEN 5/325MG TABLET PO PRN (06:30)
[2022-08-23] MEDS ORDERED: MAGNESIUM/ALUMINUM HYDROXIDE/SIMETHICONE 30ML UDC PO PRN (06:30)
[2022-08-23] MEDS: HYDRALAZINE HCL 25MG TABLET PO SCH ×3 (06:33→22:05)
[2022-08-23] MEDS: FUROSEMIDE 40MG/4ML VIAL IVP SCH ×2 (06:34→17:15)
[2022-08-23 06:41] LABS: CHLORIDE 95 mEq/L (98-107)
[2022-08-23 08:00] VITALS: BP 103/64
[2022-08-23] MEDS ORDERED: TRAMADOL 50MG TABLET PO PRN (08:00)
[2022-08-23] MEDS ORDERED: NALOXONE HCL 0.4MG/ML VIAL IV PRN (08:15)
[2022-08-23] MEDS: AMLODIPINE 10MG TABLET PO SCH (09:00)
[2022-08-23] MEDS: CHLORDIAZEPOXIDE 25MG CAPSULE PO SCH ×3 (09:07→22:05)
[2022-08-23] MEDS: SACUBITRIL/VALSARTAN 24MG/26MG TABLET PO SCH ×2 (09:07→17:00)
[2022-08-23] MEDS: MULTIVITAMINS,THER W-MINERALS TABLET PO SCH (09:08)
[2022-08-23] MEDS: PANTOPRAZOLE 40MG DR TABLET PO SCH (09:08)
[2022-08-23] MEDS: SPIRONOLACTONE 50MG TABLET PO SCH (09:08)
[2022-08-23] MEDS: FOLIC ACID 1MG TABLET PO SCH (09:08)
[2022-08-23] MEDS: THIAMINE HCL 100MG TABLET PO SCH (09:08)
[2022-08-23] MEDS ORDERED: POTASSIUM CHLORIDE 20MEQ TABLET SR PO NR (09:15)
[2022-08-23] MEDS ORDERED: MAGNESIUM 2 G PREMIX 50 ML IV NR (10:00)
[2022-08-23] MEDS ORDERED: HYDR-4134 PO (11:28)
[2022-08-23] MEDS ORDERED: L25 MT (11:28)
[2022-08-23] MEDS ORDERED: ALD50 PO (11:28)
[2022-08-23] MEDS ORDERED: FOLI-43 PO (11:28)
[2022-08-23 12:00] VITALS: BP 114/72
[2022-08-23 20:00] VITALS: BP 110/78
[2022-08-24] VITALS: BP 113/71
[2022-08-24 04:00] VITALS: BP 126/83
[2022-08-24] MEDS: FUROSEMIDE 40MG/4ML VIAL IVP SCH (07:02)
[2022-08-24] MEDS: CHLORDIAZEPOXIDE 25MG CAPSULE PO SCH ×2 (07:03→14:10)
[2022-08-24] MEDS: HYDRALAZINE HCL 25MG TABLET PO SCH ×2 (07:03→14:10)
[2022-08-24 07:49] LABS: BASOPHILS % 0.9 % (0.0-2.0); EOSINOPHILS % 3.7 % (0.0-5.0); HEMATOCRIT. 43.4 % (36.0-48.0); HEMOGLOBIN. 14.3 g/dL (12.0-16.0); LYMPHOCYTES % 20.9 % (20.0-50.0); MEAN CORPUSCULAR HEMOGLOBIN 33.8 pg (28.0-32.0); MEAN CORPUSCULAR VOLUME 102.5 fL (81.0-99.0); MEAN PLATELET VOLUME 9.3 fl (7.4-10.4); MONOCYTES % 8.8 % (2.0-8.0); NEUTROPHILS % 65.7 % (40.0-76.0); PLATELET 190 x1000/uL (130-400); RED BLOOD CELL COUNT 4.23 mill/uL (4.2-5.4); RED CELL DISTRIBUTION WIDTH 14.2 % (11.6-14.6)
[2022-08-24 08:00] VITALS: BP 130/90
[2022-08-24] MEDS: THIAMINE HCL 100MG TABLET PO SCH (09:00)
[2022-08-24] MEDS: SPIRONOLACTONE 50MG TABLET PO SCH (09:00)
[2022-08-24] MEDS: AMLODIPINE 10MG TABLET PO SCH (09:00)
[2022-08-24] MEDS ORDERED: FAMOTIDINE 20MG TABLET PO SCH (09:00)
[2022-08-24] MEDS: MULTIVITAMINS,THER W-MINERALS TABLET PO SCH (09:00)
[2022-08-24] MEDS: SACUBITRIL/VALSARTAN 24MG/26MG TABLET PO SCH (09:00)
[2022-08-24] MEDS: FOLIC ACID 1MG TABLET PO SCH (09:00)
[2022-08-24 11:57] VITALS: BP 115/77
[2022-08-24 14:16] VITALS: BP 115/77
[2022-08-24 16:00] VITALS: BP 124/73
== END 2022-08-24 16:42 | disposition home or self-care (01) | DRG 816 ==
LOC: ER 16:40 → MICUSO 18:59 → EDBEDREQTM 19:07 → EDBEDREQ 19:07 → ENRESERV 22:05 → 7WST 08-22 02:35
PROVIDERS: ADMIT Internal Medicine; ATTEND Internal Medicine
PROC: 4B02XTZ Measurement of Cardiac Defibrillator, External Approach (ICD-10-PCS; principal; 2022-08-22)
DX: T40.5X1A Poisoning by cocaine, accidental (unintentional), initial encounter (principal); I50.23 Acute on chronic systolic (congestive) heart failure; I47.20 Ventricular tachycardia, unspecified; I42.0 Dilated cardiomyopathy; R07.89 Other chest pain; I11.0 Hypertensive heart disease with heart failure; F14.10 Cocaine abuse, uncomplicated; I16.0 Hypertensive urgency; F10.229 Alcohol dependence with intoxication, unspecified; R74.01 Elevation of levels of liver transaminase levels; E87.6 Hypokalemia; Z87.891 Personal history of nicotine dependence; Z85.3 Personal history of malignant neoplasm of breast; Z95.810 Presence of automatic (implantable) cardiac defibrillator; Z90.12 Acquired absence of left breast and nipple; Z91.14 Patient's other noncompliance with medication regimen
CPT/HCPCS: 36415; 71045; 80048; 80053; 80061; 80305; 80320; 83735; 83880; 84484; 85025; 90686; 90732; 93005; 93306; 99285; J1940; J3475; G0480

== ENCOUNTER 2022-10-26 16:58 | Emergency (ER) | payer MEDICAID ==
[~2022-10-26] VITALS: Ht 160 cm; Wt 63.0 kg
[~2022-10-26 16:58] MED LIST changes: +ALD50 PO; +FOLI-43 PO; +HYDR-4134 PO; -HYDR25TA PO; +L25 MT
[2022-10-26 17:08] VITALS: BP 159/99
[2022-10-26 22:52] LABS: CLARITY URINE CLEAR (CLEAR); COLOR URINE YELLOW (YELLOW); KETONES URINE NEGATIVE (NEGATIVE); LEUKOCYTE ESTERASE URINE 2+ (NEGATIVE); NITRITE URINE NEGATIVE (NEGATIVE); OCCULT BLOOD URINE 1+ (NEGATIVE); PROTEIN URINE NEGATIVE (NEGATIVE); SPECIFIC GRAVITY URINE 1.006 (1.005-1.030)
[2022-10-26] MEDS ORDERED: NITR-87 MT (23:28)
[2022-10-26] MEDS ORDERED: HYDR453.3 TP (23:28)
[2022-10-29 10:11] LABS: NEISSERIA GONORRHOEAE NAA Negative (Negative)
== END 2022-10-26 23:40 | disposition home or self-care (01) ==
LOC: ER 16:58
DX: N39.0 Urinary tract infection, site not specified (principal); R21 Rash and other nonspecific skin eruption; I11.9 Hypertensive heart disease without heart failure; M19.90 Unspecified osteoarthritis, unspecified site; Z85.3 Personal history of malignant neoplasm of breast; Z88.3 Allergy status to other anti-infective agents; Z88.6 Allergy status to analgesic agent; Z95.0 Presence of cardiac pacemaker; Z79.82 Long term (current) use of aspirin; Z90.10 Acquired absence of unspecified breast and nipple; Z98.890 Other specified postprocedural states
CPT/HCPCS: 81003; 81025; 87210; 87491; 87591; 99283; Z7610

== ENCOUNTER 2022-11-25 08:21 | Emergency (ER) | payer MEDICAID, OTHER ==
[~2022-11-25] VITALS: Ht 160 cm; Wt 61.0 kg
[~2022-11-25 08:21] MED LIST changes: +FURO-152 MT; +HYDR453.3 TP; +NITR-87 MT; +POTA-205 MT
[2022-11-25 08:28] VITALS: BP 136/74
[2022-11-25] MEDS ORDERED: ASPIRIN 81MG TABLET PO ONE (09:45)
== END 2022-11-25 09:53 | disposition left against medical advice (07) ==
LOC: ER 08:25
DX: R07.9 Chest pain, unspecified (principal); I11.0 Hypertensive heart disease with heart failure; I50.9 Heart failure, unspecified; F91.9 Conduct disorder, unspecified; F41.9 Anxiety disorder, unspecified; Z85.3 Personal history of malignant neoplasm of breast; Z88.3 Allergy status to other anti-infective agents; Z88.5 Allergy status to narcotic agent; Z79.82 Long term (current) use of aspirin; Z90.12 Acquired absence of left breast and nipple; Z95.810 Presence of automatic (implantable) cardiac defibrillator; Z98.890 Other specified postprocedural states
CPT/HCPCS: 93005; 99283

== ENCOUNTER 2022-12-08 17:09 | Inpatient (IN) | payer MEDICAID, OTHER ==
[~2022-12-08] VITALS: Ht 160 cm; Wt 75.9 kg
[2022-12-08] MEDS ORDERED: MORPHINE SULFATE 4 MG/ML CPJ (NOT FOR IM USE) IV STA (18:12)
[2022-12-08] MEDS ORDERED: ONDANSETRON HCL 4MG/2ML INJ IV STA (18:12)
[2022-12-08] MEDS ORDERED: SODIUM CHLORIDE 0.9% 1,000 ML IV ONE (18:15)
[2022-12-08 18:28] LABS: BASOPHILS % 0.4 % (0.0-2.0); EOSINOPHILS % 0.7 % (0.0-5.0); HEMATOCRIT. 39.4 % (36.0-48.0); LYMPHOCYTES % 8.5 % (20.0-50.0); MEAN CORPUSCULAR HEMOGLOBIN 32.4 pg (28.0-32.0); MEAN CORPUSCULAR VOLUME 98.3 fL (81.0-99.0); MEAN PLATELET VOLUME 8.7 fl (7.4-10.4); MONOCYTES % 4.3 % (2.0-8.0); NEUTROPHILS % 86.1 % (40.0-76.0); PLATELET 314 x1000/uL (130-400); RED BLOOD CELL COUNT 4.01 mill/uL (4.2-5.4); RED CELL DISTRIBUTION WIDTH 14.2 % (11.6-14.6)
[2022-12-08 18:33] LABS: CHLORIDE 98 mEq/L (98-107)
[2022-12-08 19:52] LABS: CLARITY URINE CLOUDY (CLEAR); COLOR URINE YELLOW (YELLOW); KETONES URINE TRACE (NEGATIVE); LEUKOCYTE ESTERASE URINE 3+ (NEGATIVE); NITRITE URINE NEGATIVE (NEGATIVE); OCCULT BLOOD URINE NEGATIVE (NEGATIVE); PH URINE 6.5 (4.5-8.0); PROTEIN URINE NEGATIVE (NEGATIVE); SPECIFIC GRAVITY URINE 1.014 (1.005-1.030)
[2022-12-08] MEDS ORDERED: CEFTRIAXONE 1 G PREMIX 50 ML IV ONE (20:15)
[2022-12-08 20:50] LABS: PARTIAL THROMBOPLASTIN TIME 27.3 sec (23.4-31.0)
[2022-12-08 21:41] LABS: INR 1.1; PROTHROMBIN TIME 11.7 sec (9.6-11.0)
[2022-12-08] MEDS ORDERED: CEFTRIAXONE 1 G PREMIX 50 ML IV NR (22:45)
[2022-12-08] MEDS ORDERED: IOHEXOL-350 100 ML BOTTLE ONE (23:17)
[2022-12-09] MEDS: ACETAMINOPHEN 325MG TABLET PO PRN ×2 (01:05→08:26)
[2022-12-09] MEDS ORDERED: KETOROLAC 30MG/ML VIAL IV PRN (10:45)
[2022-12-09 15:00] VITALS: BP 123/72
[2022-12-09 16:01] VITALS: BP 111/70
[2022-12-09] MEDS ORDERED: *PATIENT'S OWN MEDICATION STORAGE XX SCH (16:15)
[2022-12-09] MEDS ORDERED: ONDANSETRON HCL 4MG/2ML INJ IV PRN (17:30)
[2022-12-09] MEDS ORDERED: DOCUSATE SODIUM 100MG CAPSULE PO PRN (17:30)
[2022-12-09] MEDS ORDERED: ACETAMINOPHEN 325MG TABLET PO PRN (17:30)
[2022-12-09] MEDS ORDERED: CLONIDINE 0.1MG TABLET PO PRN (17:30)
[2022-12-09] MEDS: ENOXAPARIN 40MG/0.4ML SYR SUBCUT SCH (17:58)
[2022-12-09 20:00] VITALS: BP 130/76
[2022-12-09 20:22] LABS: BASOPHILS % 0.2 % (0.0-2.0); HEMATOCRIT. 32.3 % (36.0-48.0); HEMOGLOBIN. 10.5 g/dL (12.0-16.0); LYMPHOCYTES % 14.8 % (20.0-50.0); MEAN CORPUSCULAR HEMOGLOBIN 32.3 pg (28.0-32.0); MEAN CORPUSCULAR VOLUME 99.6 fL (81.0-99.0); MEAN PLATELET VOLUME 8.2 fl (7.4-10.4); MONOCYTES % 4.5 % (2.0-8.0); NEUTROPHILS % 78.5 % (40.0-76.0); PLATELET 225 x1000/uL (130-400); RED BLOOD CELL COUNT 3.24 mill/uL (4.2-5.4); RED CELL DISTRIBUTION WIDTH 14.3 % (11.6-14.6)
[2022-12-09 20:29] LABS: CHLORIDE 105 mEq/L (98-107)
[2022-12-09] MEDS: CEFTRIAXONE 1,000 MG in DEXTROSE 5% WATER 50 ML IV SCH (21:00)
[2022-12-09] MEDS: HYDRALAZINE HCL 25MG TABLET PO SCH (21:05)
[2022-12-09] MEDS: ATORVASTATIN CALCIUM 20MG TABLET PO SCH (21:06)
[2022-12-10] VITALS: BP 136/81
[2022-12-10 04:00] VITALS: BP 135/81
[2022-12-10 06:40] LABS: BASOPHILS % 0.4 % (0.0-2.0); EOSINOPHILS % 4.1 % (0.0-5.0); HEMOGLOBIN. 11.3 g/dL (12.0-16.0); LYMPHOCYTES % 22.5 % (20.0-50.0); MEAN CORPUSCULAR HEMOGLOBIN 32.5 pg (28.0-32.0); MEAN CORPUSCULAR VOLUME 98.1 fL (81.0-99.0); MEAN PLATELET VOLUME 8.3 fl (7.4-10.4); MONOCYTES % 6.8 % (2.0-8.0); NEUTROPHILS % 66.2 % (40.0-76.0); PLATELET 219 x1000/uL (130-400); RED BLOOD CELL COUNT 3.46 mill/uL (4.2-5.4); RED CELL DISTRIBUTION WIDTH 14.3 % (11.6-14.6)
[2022-12-10 06:59] LABS: CHLORIDE 105 mEq/L (98-107)
[2022-12-10 07:21] LABS: HDL CHOLESTEROL 23 mg/dL (40-59); LDL CHOLESTEROL 81 mg/dL (5-100)
[2022-12-10 08:00] VITALS: BP 142/73
[2022-12-10] MEDS: FOLIC ACID/VITAMIN B COMP W-C TABLET PO SCH (08:23)
[2022-12-10] MEDS: FUROSEMIDE 20MG TABLET PO SCH (08:24)
[2022-12-10] MEDS: ASPIRIN 81MG EC TABLET PO SCH (08:24)
[2022-12-10] MEDS: HYDRALAZINE HCL 25MG TABLET PO SCH ×3 (08:24→20:37)
[2022-12-10] MEDS: THIAMINE HCL 100MG TABLET PO SCH (08:24)
[2022-12-10] MEDS: FERROUS SULFATE 325MG TABLET PO SCH ×2 (08:24→17:18)
[2022-12-10] MEDS: POTASSIUM CHLORIDE 20MEQ TABLET SR PO SCH (08:24)
[2022-12-10] MEDS: SPIRONOLACTONE 25MG TABLET PO SCH (08:25)
[2022-12-10] MEDS: DIPHENHYDRAMINE 25MG CAPSULE PO PRN ×2 (08:58→20:53)
[2022-12-10] MEDS ORDERED: AMLODIPINE 5MG TABLET PO SCH (09:00)
[2022-12-10 12:00] VITALS: BP 131/81
[2022-12-10 16:00] VITALS: BP 138/78
[2022-12-10] MEDS: ENOXAPARIN 40MG/0.4ML SYR SUBCUT SCH (17:18)
[2022-12-10 20:00] VITALS: BP 142/80
[2022-12-10] MEDS: ATORVASTATIN CALCIUM 20MG TABLET PO SCH (20:35)
[2022-12-10] MEDS: CEFTRIAXONE 1,000 MG in DEXTROSE 5% WATER 50 ML IV SCH (20:35)
[2022-12-10] MEDS: ACETAMINOPHEN 325MG TABLET PO PRN (20:37)
[2022-12-11] VITALS: BP 136/69
[2022-12-11 04:00] VITALS: BP 146/85
[2022-12-11 05:51] LABS: EOSINOPHILS % 3.4 % (0.0-5.0); HEMATOCRIT. 33.5 % (36.0-48.0); HEMOGLOBIN. 11.3 g/dL (12.0-16.0); LYMPHOCYTES % 21.9 % (20.0-50.0); MEAN CORPUSCULAR VOLUME 98.1 fL (81.0-99.0); MEAN PLATELET VOLUME 8.3 fl (7.4-10.4); MONOCYTES % 8.1 % (2.0-8.0); NEUTROPHILS % 65.6 % (40.0-76.0); PLATELET 257 x1000/uL (130-400); RED BLOOD CELL COUNT 3.41 mill/uL (4.2-5.4); RED CELL DISTRIBUTION WIDTH 14.2 % (11.6-14.6)
[2022-12-11] MEDS: HYDRALAZINE HCL 25MG TABLET PO SCH ×2 (06:10→13:08)
[2022-12-11 08:33] VITALS: BP 129/78
[2022-12-11] MEDS: POTASSIUM CHLORIDE 20MEQ TABLET SR PO SCH (08:35)
[2022-12-11] MEDS: FOLIC ACID/VITAMIN B COMP W-C TABLET PO SCH (08:35)
[2022-12-11] MEDS: ASPIRIN 81MG EC TABLET PO SCH (08:35)
[2022-12-11] MEDS: FUROSEMIDE 20MG TABLET PO SCH (08:35)
[2022-12-11] MEDS: SPIRONOLACTONE 25MG TABLET PO SCH (08:35)
[2022-12-11] MEDS: DIPHENHYDRAMINE 25MG CAPSULE PO PRN (08:36)
[2022-12-11] MEDS: THIAMINE HCL 100MG TABLET PO SCH (08:36)
[2022-12-11] MEDS: FERROUS SULFATE 325MG TABLET PO SCH (08:36)
[2022-12-11 08:54] LABS: CHLORIDE 103 mEq/L (98-107)
[2022-12-11 11:59] VITALS: BP 127/80
[2022-12-11 14:31] VITALS: BP 129/80
== END 2022-12-11 15:00 | disposition home or self-care (01) | DRG 203 ==
LOC: ER 17:09 → MICUSO 21:21 → EDBEDREQ 21:35 → EDBEDREQTM 21:35 → 7WST 12-09 14:57
PROVIDERS: ADMIT Internal Medicine; ATTEND Internal Medicine
DX: M94.0 Chondrocostal junction syndrome [Tietze] (principal); I11.0 Hypertensive heart disease with heart failure; I50.9 Heart failure, unspecified; E78.5 Hyperlipidemia, unspecified; N39.0 Urinary tract infection, site not specified; J44.9 Chronic obstructive pulmonary disease, unspecified; M19.90 Unspecified osteoarthritis, unspecified site; F41.9 Anxiety disorder, unspecified; F17.210 Nicotine dependence, cigarettes, uncomplicated; Z59.00 Homelessness unspecified; Z85.3 Personal history of malignant neoplasm of breast; Z95.810 Presence of automatic (implantable) cardiac defibrillator; Z88.1 Allergy status to other antibiotic agents; Z90.12 Acquired absence of left breast and nipple
CPT/HCPCS: 36415; 71045; 71275; 74176; 80048; 80053; 80061; 81003; 83880; 84443; 84484; 85025; 85379; 93005; 93306; 99285; J0696; J1650; J1885; J2270; J2405; J7030; J7060; Q0163; Q9967

== ENCOUNTER 2023-05-09 03:52 | Inpatient (IN) | payer MEDICAID, OTHER ==
[~2023-05-09] VITALS: Ht 157.5 cm; Wt 57.2 kg
[~2023-05-09 03:52] MED LIST changes: -ALD50 PO; -AMLO5TAB88 PO; -FURO-152 MT; -HYDR-4134 PO; -HYDR453.3 TP; -L25 MT; +METO-385 PO; -NITR-87 MT; -POTA-205 MT; +SPIR25TA PO
[2023-05-09] MEDS ORDERED: FUROSEMIDE 40MG/4ML VIAL IV ONE (04:45)
[2023-05-09 05:13] LABS: BASOPHILS % 0.6 % (0.0-2.0); HEMATOCRIT. 38.3 % (36.0-48.0); HEMOGLOBIN. 12.9 g/dL (12.0-16.0); LYMPHOCYTES % 16.1 % (20.0-50.0); MEAN CORPUSCULAR HEMOGLOBIN 33.4 pg (28.0-32.0); MEAN CORPUSCULAR VOLUME 99.4 fL (81.0-99.0); MEAN PLATELET VOLUME 8.2 fl (7.4-10.4); MONOCYTES % 3.3 % (2.0-8.0); PLATELET 262 x1000/uL (130-400); RED BLOOD CELL COUNT 3.86 mill/uL (4.2-5.4); RED CELL DISTRIBUTION WIDTH 13.8 % (11.6-14.6)
[2023-05-09 05:19] LABS: CHLORIDE 105 mEq/L (98-107)
[2023-05-09 05:24] LABS: BG BASE EXCESS 0.2 mmol/L (-2.0-2.0); BG CARBOXYHEMOGLOBIN 0.2 % (0.5-1.5); BG DEOXYHEMOGLOBIN 2.9 % (0.0-5.0); BG FRACTION INSPIRED OXYGEN 50; BG HCO3 ACT 23.5 mmol/L (22.0-26.0); BG METHEMOGLOBIN 0.2 % (0.0-1.5); BG OXYGEN SATURATION 97.1 % (92.0-98.5); BG OXYHEMOGLOBIN 96.7 % (94.0-97.0); BG PCO2 34.9 mmHg (35.0-45.0); BG PH 7.447 (7.350-7.450); BG PO2 91.3 mmHg (75.0-100.0); BG SAMPLE SITE RIGHT RADIAL; BG TOTAL HEMOGLOBIN 16.7 g/dL (12.0-18.0); BG VENT MODE MASK - SIMPLE
[2023-05-09] MEDS ORDERED: FUROSEMIDE 40MG/4ML VIAL IVP SCH (10:15)
[2023-05-09] MEDS ORDERED: METOLAZONE 2.5MG TABLET PO NR (11:00)
[2023-05-09] MEDS: POTASSIUM CHLORIDE 20MEQ TABLET SR PO SCH (11:04)
[2023-05-09] MEDS: ONDANSETRON HCL 4MG/2ML INJ IV PRN (11:08)
[2023-05-09] MEDS ORDERED: LOSARTAN POTASSIUM 25 MG TABLET PO SCH (17:45)
[2023-05-09 18:00] VITALS: BP 110/81; PULSE 78; RESP 20; TEMP 98
[2023-05-09] MEDS ORDERED: ENOXAPARIN 80MG/0.8ML SYR SUBCUT NR (18:15)
[2023-05-09 18:23] VITALS: BP 110/81; PULSE 78; RESP 20; TEMP 98
[2023-05-09 18:35] VITALS: BP 110/81; PULSE 78; RESP 20; TEMP 98
[2023-05-09 20:40] VITALS: BP 109/79; PULSE 87; RESP 20; TEMP 97.7
[2023-05-09] MEDS: CARVEDILOL 6.25 MG TABLET PO SCH (21:58)
[2023-05-09 21:59] LABS: INR 1.2; PROTHROMBIN TIME 12.3 sec (9.6-11.0)
[2023-05-10] VITALS (8 sets, daily range): BP systolic 94–125; BP diastolic 56–77; PULSE 59–88; RESP 16–20; TEMP 96–98.1
[2023-05-10] MEDS: ENOXAPARIN 60MG/0.6ML SYR SUBCUT SCH ×3 (00:11→22:32)
[2023-05-10 07:03] LABS: BASOPHILS % 1.1 % (0.0-2.0); EOSINOPHILS % 3.7 % (0.0-5.0); HEMATOCRIT. 43.1 % (36.0-48.0); HEMOGLOBIN. 14.6 g/dL (12.0-16.0); LYMPHOCYTES % 27.1 % (20.0-50.0); MEAN CORPUSCULAR HEMOGLOBIN 33.4 pg (28.0-32.0); MEAN CORPUSCULAR VOLUME 98.4 fL (81.0-99.0); MEAN PLATELET VOLUME 8.9 fl (7.4-10.4); MONOCYTES % 6.5 % (2.0-8.0); NEUTROPHILS % 61.6 % (40.0-76.0); PLATELET 284 x1000/uL (130-400); RED BLOOD CELL COUNT 4.38 mill/uL (4.2-5.4); RED CELL DISTRIBUTION WIDTH 13.7 % (11.6-14.6)
[2023-05-10 07:12] LABS: INR 1.1; PROTHROMBIN TIME 12.2 sec (9.6-11.0)
[2023-05-10] MEDS ORDERED: FUROSEMIDE 40MG/4ML VIAL IVP SCH (09:00)
[2023-05-10] MEDS: CARVEDILOL 6.25 MG TABLET PO SCH ×2 (09:00→20:22)
[2023-05-10] MEDS: POTASSIUM CHLORIDE 20MEQ TABLET SR PO SCH (09:01)
[2023-05-10] MEDS: ACETAMINOPHEN 325MG TABLET PO PRN (09:29)
[2023-05-10 10:25] LABS: *AMPHETAMINES SCREEN URINE NEGATIVE (NEGATIVE); *BARBITURATES SCREEN URINE NEGATIVE (NEGATIVE); *BENZODIAZEPINES SCREEN URINE NEGATIVE (NEGATIVE); *COCAINE SCREEN URINE PRESUMTIVE POSITIVE (NEGATIVE); CANNABINOID URINE SCREEN NEGATIVE (NEGATIVE); METHADONE URINE SCREEN NEGATIVE (NEGATIVE); OPIATES URINE SCREEN NEGATIVE (NEGATIVE); PHENCYCLIDINE URINE SCREEN NEGATIVE (NEGATIVE)
[2023-05-10] MEDS ORDERED: IOHEXOL-350 100 ML BOTTLE ONE (11:34)
[2023-05-10] MEDS ORDERED: ASPI-1406 PO (12:01)
[2023-05-10] MEDS ORDERED: CARV3.1242 MT (12:01)
[2023-05-10] MEDS ORDERED: SPIR25TA PO (12:01)
[2023-05-10] MEDS ORDERED: FURO40TA5 MT (12:01)
[2023-05-10] MEDS ORDERED: SACU1TAB MT (12:01)
[2023-05-10] MEDS: CLOPIDOGREL 75MG TABLET PO SCH (18:42)
[2023-05-10] MEDS: SPIRONOLACTONE 25MG TABLET PO SCH (18:42)
[2023-05-10] MEDS: FUROSEMIDE 40MG TABLET PO SCH (20:23)
[2023-05-11] VITALS: BP 100/72; PULSE 84; RESP 19; TEMP 97.7
[2023-05-11] MEDS: ACETAMINOPHEN 325MG TABLET PO PRN (00:26)
[2023-05-11] MEDS: ONDANSETRON HCL 4MG/2ML INJ IV PRN (00:26)
[2023-05-11 04:00] VITALS: BP 107/74; PULSE 78; RESP 20; TEMP 97.8
[2023-05-11 08:00] VITALS: BP 95/73; PULSE 83; RESP 18; TEMP 96.9
[2023-05-11] MEDS: POTASSIUM CHLORIDE 20MEQ TABLET SR PO SCH (08:06)
[2023-05-11] MEDS: CLOPIDOGREL 75MG TABLET PO SCH (08:07)
[2023-05-11] MEDS: FUROSEMIDE 40MG TABLET PO SCH (08:07)
[2023-05-11] MEDS: CARVEDILOL 6.25 MG TABLET PO SCH (09:00)
[2023-05-11] MEDS: SPIRONOLACTONE 25MG TABLET PO SCH (09:00)
[2023-05-11] MEDS: ENOXAPARIN 60MG/0.6ML SYR SUBCUT SCH (10:30)
[2023-05-11 12:00] VITALS: BP 97/67; PULSE 74; RESP 18; TEMP 97.4
[2023-05-11 13:18] VITALS: BP 97/67; PULSE 74; TEMP 97.4; O2SAT 98
[2023-05-11 16:00] VITALS: BP 115/78; PULSE 67; RESP 18; TEMP 97
== END 2023-05-11 19:37 | disposition home or self-care (01) | DRG 190 ==
LOC: ER 03:52 → 7WST 05:45 → ER 16:14
PROVIDERS: ADMIT Internal Medicine; ATTEND Internal Medicine
DX: I21.4 Non-ST elevation (NSTEMI) myocardial infarction (principal); I50.23 Acute on chronic systolic (congestive) heart failure; E44.1 Mild protein-calorie malnutrition; I11.0 Hypertensive heart disease with heart failure; E87.6 Hypokalemia; F10.10 Alcohol abuse, uncomplicated; F17.210 Nicotine dependence, cigarettes, uncomplicated; Z95.810 Presence of automatic (implantable) cardiac defibrillator; Z85.3 Personal history of malignant neoplasm of breast; Z88.6 Allergy status to analgesic agent; Z88.1 Allergy status to other antibiotic agents; Z88.8 Allergy status to other drugs, medicaments and biological substances; Z79.899 Other long term (current) drug therapy; Z79.82 Long term (current) use of aspirin; Z71.41 Alcohol abuse counseling and surveillance of alcoholic; Z71.51 Drug abuse counseling and surveillance of drug abuser; Z91.199 Patient's noncompliance with other medical treatment and regimen due to unspecified reason; Z91.148 Patient's other noncompliance with medication regimen for other reason; Z68.23 Body mass index [BMI] 23.0-23.9, adult
CPT/HCPCS: 36415; 36600; 71045; 71275; 80048; 80053; 80305; 82375; 82805; 83605; 83880; 84484; 85025; 85379; 93005; 93970; 99291; J1650; J1940; J2405; Q9967

== ENCOUNTER 2023-09-24 23:51 | Emergency (ER) | payer MEDICAID ==
[~2023-09-24] VITALS: Ht 165.1 cm; Wt 70.0 kg
[~2023-09-24 23:51] MED LIST changes: +CARV3.1242 MT; -DICL50TA9 PO; -METO-385 PO; +SACU1TAB MT
[2023-09-24 23:55] VITALS: O2SAT 93
[2023-09-25] MEDS ORDERED: NALOXONE HCL 1 MG/ML 2ML VIAL IV ONE (00:30)
[2023-09-25 00:38] LABS: BASOPHILS % 0.7 % (0.0-2.0); DIFFERENTIAL COMMENT 0; EOSINOPHILS % 0.8 % (0.0-5.0); HEMATOCRIT. 41.2 % (36.0-48.0); HEMOGLOBIN. 13.7 g/dL (12.0-16.0); LYMPHOCYTES % 12.5 % (20.0-50.0); MEAN CORPUSCULAR HEMOGLOBIN 34.7 pg (28.0-32.0); MEAN CORPUSCULAR HGB CONC 33.1 g/dL (31.0-37.0); MEAN CORPUSCULAR VOLUME 104.8 fL (81.0-99.0); PLATELET 217 x1000/uL (130-400); RED BLOOD CELL COUNT 3.93 mill/uL (4.2-5.4); RED CELL DISTRIBUTION WIDTH 14.2 % (11.6-14.6); WHITE BLOOD COUNT 6.5 x1000/uL (4.5-11.0)
[2023-09-25 00:59] LABS: ALANINE AMINOTRANSFERASE 8 IU/L (10-49); ALBUMIN 3.9 g/dL (3.2-4.8); ASPARTATE AMINOTRANSFERASE 23 IU/L (<34); BILIRUBIN TOTAL 0.3 mg/dL (0.1-1.0); CALCIUM 9.6 mg/dL (8.7-10.4); CARBON DIOXIDE 23 mEq/L (21-32); CHLORIDE 105 mEq/L (98-107); CREATININE 1.2 mg/dL (0.6-1.0); ETHANOL BLOOD 92 mg/dL (<10); GLUCOSE 127 mg/dL (70-105); POTASSIUM 3.3 mEq/L (3.5-5.1); PROTEIN TOTAL 6.7 g/dL (6.0-8.3); SODIUM 140 mEq/L (136-145); UREA NITROGEN BLOOD 9 mg/dL (9-23)
[2023-09-25 07:50] VITALS: BP 127/84; PULSE 107; RESP 16; TEMP 97.7
== END 2023-09-25 08:48 | disposition home or self-care (01) ==
LOC: ER 23:51
DX: F10.129 Alcohol abuse with intoxication, unspecified (principal); F41.9 Anxiety disorder, unspecified; I10 Essential (primary) hypertension; Y90.4 Blood alcohol level of 80-99 mg/100 ml
CPT/HCPCS: 99285; 80053; 80307; 80329; 80320; 85025; J2310; G0480

== ENCOUNTER 2024-03-09 20:51 | Inpatient (IN) | payer MEDICAID, OTHER ==
[~2024-03-09] VITALS: Ht 157.5 cm; Wt 56.7 kg
[~2024-03-09 20:51] MED LIST changes: +AMI2 PO; +AMLO5TAB88 PO; +ASPI-1160 PO; -ASPI-1406 PO; -CARV3.1242 MT; +CLOP-31 PO; -FURO40TA5 MT; +FURO40TA5 PO; +LISI-186 PO; -SACU1TAB MT; +SPIR25TA MT; -SPIR25TA PO
[2024-03-10 00:48] LABS: BASOPHILS % 0.8 % (0.0-2.0); EOSINOPHILS % 0.7 % (0.0-5.0); HEMATOCRIT. 38.8 % (36.0-48.0); HEMOGLOBIN. 13.2 g/dL (12.0-16.0); LYMPHOCYTES % 18.6 % (20.0-50.0); MEAN CORPUSCULAR HEMOGLOBIN 32.7 pg (28.0-32.0); MEAN CORPUSCULAR HGB CONC 33.9 g/dL (31.0-37.0); MEAN CORPUSCULAR VOLUME 96.5 fL (81.0-99.0); MEAN PLATELET VOLUME 8.8 fl (7.4-10.4); MONOCYTES % 6.2 % (2.0-8.0); NEUTROPHILS % 73.7 % (40.0-76.0); PLATELET 215 x1000/uL (130-400); RED BLOOD CELL COUNT 4.03 mill/uL (4.2-5.4); RED CELL DISTRIBUTION WIDTH 13.5 % (11.6-14.6); WHITE BLOOD COUNT 6.8 x1000/uL (4.5-11.0)
[2024-03-10 00:54] LABS: CHLORIDE 103 mEq/L (98-107); POTASSIUM 4.3 mEq/L (3.5-5.1); SODIUM 136 mEq/L (136-145)
[2024-03-10 00:55] LABS: CALCIUM 9.8 mg/dL (8.7-10.4); CARBON DIOXIDE 26 mEq/L (21-32)
[2024-03-10 01:00] LABS: GLUCOSE 77 mg/dL (70-105); UREA NITROGEN BLOOD 41 mg/dL (9-23)
[2024-03-10 01:07] LABS: CREATININE 2.4 mg/dL (0.6-1.0)
[2024-03-10 01:12] LABS: TROPONIN I HIGH SENSITIVITY 61 ng/L (3.0-34)
[2024-03-10 01:26] LABS: INR 1.1; PROTHROMBIN TIME 12.4 sec (9.6-11.0)
[2024-03-10] MEDS: KETOROLAC 15MG/ML VIAL IV ONE (02:19)
[2024-03-10] MEDS ORDERED: CLONIDINE 0.1MG TABLET PO PRN (03:30)
[2024-03-10] MEDS ORDERED: DOCUSATE SODIUM 100MG CAPSULE PO PRN (03:30)
[2024-03-10] MEDS ORDERED: GUAIFENESIN 200MG/10ML SUGAR FREE UDC PO PRN (03:30)
[2024-03-10] MEDS ORDERED: MAGNESIUM/ALUMINUM HYDROXIDE/SIMETHICONE 30ML UDC PO PRN (03:30)
[2024-03-10] MEDS ORDERED: ONDANSETRON HCL 4MG/2ML INJ IV PRN (03:30)
[2024-03-10] MEDS ORDERED: IPRATROPIUM/ALBUTEROL 0.5-3(2.5)MG/3ML NEB HHN PRN (03:30)
[2024-03-10 05:07] LABS: TROPONIN I HIGH SENSITIVITY 65 ng/L (3.0-34)
[2024-03-10 05:13] LABS: LDL CHOLESTEROL 43 mg/dL (5-100); TRIGLYCERIDE 149 mg/dL (0-150)
[2024-03-10 05:15] LABS: CHOLESTEROL 121 mg/dL (<200); HDL CHOLESTEROL 53 mg/dL (>65)
[2024-03-10 05:17] LABS: T4 FREE 1.34 ng/dL (0.89-1.76); THYROID STIMULATING HORMONE 10.89 uIU/mL (0.55-4.78)
[2024-03-10] MEDS: PANTOPRAZOLE 40MG DR TABLET PO SCH (08:11)
[2024-03-10 11:02] VITALS: BP 105/58; PULSE 65; RESP 20; TEMP 97.6
[2024-03-10 12:35] LABS: BASOPHILS % 0.8 % (0.0-2.0); EOSINOPHILS % 2.3 % (0.0-5.0); HEMATOCRIT. 38.4 % (36.0-48.0); HEMOGLOBIN. 12.6 g/dL (12.0-16.0); LYMPHOCYTES % 26.4 % (20.0-50.0); MEAN CORPUSCULAR HEMOGLOBIN 32.4 pg (28.0-32.0); MEAN CORPUSCULAR HGB CONC 32.8 g/dL (31.0-37.0); MEAN CORPUSCULAR VOLUME 99.1 fL (81.0-99.0); MEAN PLATELET VOLUME 8.9 fl (7.4-10.4); MONOCYTES % 9.2 % (2.0-8.0); NEUTROPHILS % 61.3 % (40.0-76.0); PLATELET 183 x1000/uL (130-400); RED BLOOD CELL COUNT 3.88 mill/uL (4.2-5.4); RED CELL DISTRIBUTION WIDTH 13.6 % (11.6-14.6); WHITE BLOOD COUNT 4.9 x1000/uL (4.5-11.0)
[2024-03-10] MEDS: SODIUM CHLORIDE 0.9% 1,000 ML IV SCH (12:58)
[2024-03-10] MEDS: ENOXAPARIN 30MG/0.3ML SYR SUBCUT SCH (12:59)
[2024-03-10] MEDS: ASPIRIN 81MG EC TABLET PO SCH (12:59)
[2024-03-10] MEDS: ACETAMINOPHEN 325MG TABLET PO PRN (13:00)
[2024-03-10] MEDS: CLOPIDOGREL 75MG TABLET PO SCH (13:00)
[2024-03-10 16:00] VITALS: BP 107/59; PULSE 62; RESP 18; TEMP 97.9
[2024-03-10 18:15] LABS: CREATINE KINASE MB FRACTION 2.2 ng/mL (0.5-3.6)
[2024-03-10 20:00] VITALS: BP 147/65; PULSE 70; RESP 20; TEMP 98.1
[2024-03-10] MEDS: ATORVASTATIN CALCIUM 40MG TABLET PO SCH (20:54)
[2024-03-11] VITALS: BP 143/89; PULSE 79; RESP 20; TEMP 97.6
[2024-03-11 00:43] LABS: CREATINE KINASE MB FRACTION 2.8 ng/mL (0.5-3.6)
[2024-03-11 04:00] VITALS: BP 143/63; PULSE 60; RESP 20; TEMP 97.6
[2024-03-11 07:29] LABS: BASOPHILS % 0.8 % (0.0-2.0); EOSINOPHILS % 2.4 % (0.0-5.0); HEMATOCRIT. 33.9 % (36.0-48.0); HEMOGLOBIN. 11.5 g/dL (12.0-16.0); LYMPHOCYTES % 20.6 % (20.0-50.0); MEAN CORPUSCULAR HEMOGLOBIN 32.5 pg (28.0-32.0); MEAN CORPUSCULAR HGB CONC 33.9 g/dL (31.0-37.0); MEAN CORPUSCULAR VOLUME 95.8 fL (81.0-99.0); MEAN PLATELET VOLUME 9.1 fl (7.4-10.4); MONOCYTES % 9.4 % (2.0-8.0); NEUTROPHILS % 66.8 % (40.0-76.0); PLATELET 140 x1000/uL (130-400); RED BLOOD CELL COUNT 3.54 mill/uL (4.2-5.4); RED CELL DISTRIBUTION WIDTH 13.2 % (11.6-14.6); WHITE BLOOD COUNT 4.5 x1000/uL (4.5-11.0)
[2024-03-11 07:49] LABS: CALCIUM 9.5 mg/dL (8.7-10.4); CHLORIDE 104 mEq/L (98-107); POTASSIUM 4.1 mEq/L (3.5-5.1); SODIUM 135 mEq/L (136-145)
[2024-03-11 07:50] LABS: CARBON DIOXIDE 24 mEq/L (21-32)
[2024-03-11 07:55] LABS: GLUCOSE 113 mg/dL (70-105); UREA NITROGEN BLOOD 52 mg/dL (9-23)
[2024-03-11 07:57] LABS: CREATINE KINASE MB FRACTION 1.9 ng/mL (0.5-3.6); PHOSPHORUS 3.7 mg/dL (2.5-4.9)
[2024-03-11 08:00] VITALS: BP 113/65; PULSE 62; RESP 18; TEMP 97.5
[2024-03-11 12:00] VITALS: BP 133/84; PULSE 76; RESP 18; TEMP 97.7
[2024-03-11 14:58] VITALS: BP 126/63; PULSE 65; TEMP 97.6; O2SAT 97
[2024-03-11 16:15] LABS: CREATINE KINASE MB FRACTION 3.5 ng/mL (0.5-3.6)
== END 2024-03-11 15:52 | disposition home or self-care (01) | DRG 243 ==
LOC: ER 20:51 → 5WST 03-10 02:25 → 8WST 03-10 10:47
PROVIDERS: ADMIT Internal Medicine; ATTEND Internal Medicine
DX: K21.9 Gastro-esophageal reflux disease without esophagitis (principal); I21.4 Non-ST elevation (NSTEMI) myocardial infarction; I42.9 Cardiomyopathy, unspecified; I13.0 Hypertensive heart and chronic kidney disease with heart failure and stage 1 through stage 4 chronic kidney disease, or unspecified chronic kidney disease; I50.22 Chronic systolic (congestive) heart failure; N17.9 Acute kidney failure, unspecified; I49.5 Sick sinus syndrome; E78.5 Hyperlipidemia, unspecified; I25.10 Atherosclerotic heart disease of native coronary artery without angina pectoris; F41.9 Anxiety disorder, unspecified; N18.4 Chronic kidney disease, stage 4 (severe); E03.9 Hypothyroidism, unspecified; D64.9 Anemia, unspecified; Z95.810 Presence of automatic (implantable) cardiac defibrillator; Z85.3 Personal history of malignant neoplasm of breast; Z90.12 Acquired absence of left breast and nipple; Z88.1 Allergy status to other antibiotic agents; Z88.5 Allergy status to narcotic agent; Z95.5 Presence of coronary angioplasty implant and graft; Z87.891 Personal history of nicotine dependence; Z20.822 Contact with and (suspected) exposure to COVID-19
CPT/HCPCS: 36415; 71045; 76700; 80048; 80061; 80320; 82550; 82553; 83735; 83880; 84100; 84439; 84443; 84484; 85025; 85379; 87426; 93005; 93970; 99285; J1650; J1885; J7030; G0480

== ENCOUNTER 2024-05-25 14:20 | Inpatient (IN) | payer MEDICAID ==
[~2024-05-25] VITALS: Ht 162.6 cm; Wt 68.0 kg
[~2024-05-25 14:20] MED LIST changes: +COR3 PO; +EMPA10TA PO; +LEVO50TA MT; +ROSU20TA2 PO
[2024-05-25] MEDS: MORPHINE SULFATE 4 MG/ML INJ (FOR IV/IM USE) IV STA (15:15)
[2024-05-25] MEDS: ONDANSETRON HCL 4MG/2ML INJ IV STA (15:15)
[2024-05-25] MEDS: SODIUM CHLORIDE 0.9% 1,000 ML IV ONE (15:15)
[2024-05-25 15:23] LABS: BASOPHILS % 0.7 % (0.0-2.0); EOSINOPHILS % 0.9 % (0.0-5.0); HEMATOCRIT. 31.3 % (36.0-48.0); HEMOGLOBIN. 10.4 g/dL (12.0-16.0); LYMPHOCYTES % 16.8 % (20.0-50.0); MEAN CORPUSCULAR HEMOGLOBIN 33.1 pg (28.0-32.0); MEAN CORPUSCULAR HGB CONC 33.1 g/dL (31.0-37.0); MEAN CORPUSCULAR VOLUME 99.8 fL (81.0-99.0); MEAN PLATELET VOLUME 7.6 fl (7.4-10.4); MONOCYTES % 8.3 % (2.0-8.0); NEUTROPHILS % 73.3 % (40.0-76.0); PLATELET 164 x1000/uL (130-400); RED BLOOD CELL COUNT 3.13 mill/uL (4.2-5.4); RED CELL DISTRIBUTION WIDTH 14.3 % (11.6-14.6); WHITE BLOOD COUNT 7.5 x1000/uL (4.5-11.0)
[2024-05-25 15:29] LABS: CHLORIDE 107 mEq/L (98-107); POTASSIUM 4.3 mEq/L (3.5-5.1); SODIUM 142 mEq/L (136-145)
[2024-05-25 15:30] LABS: CALCIUM 9.4 mg/dL (8.7-10.4); CARBON DIOXIDE 26 mEq/L (21-32)
[2024-05-25 15:34] LABS: INR 1.1; PARTIAL THROMBOPLASTIN TIME 25.3 sec (23.4-31.0); PROTHROMBIN TIME 12.3 sec (9.6-11.0)
[2024-05-25 15:35] LABS: CREATININE 1.2 mg/dL (0.6-1.0); GLUCOSE 90 mg/dL (70-105); UREA NITROGEN BLOOD 14 mg/dL (9-23)
[2024-05-25 15:36] LABS: TROPONIN I HIGH SENSITIVITY 23 ng/L (3.0-34)
[2024-05-25 15:37] LABS: ALANINE AMINOTRANSFERASE 55 IU/L (10-49); ALBUMIN 4.2 g/dL (3.2-4.8); ASPARTATE AMINOTRANSFERASE 47 IU/L (<34); BILIRUBIN TOTAL 0.4 mg/dL (0.1-1.0); PROTEIN TOTAL 6.6 g/dL (6.0-8.3)
[2024-05-25] MEDS: MAGNESIUM 1 G PREMIX 100 ML IV ONE (20:15)
[2024-05-25] MEDS ORDERED: CLONIDINE 0.1MG TABLET PO PRN (23:30)
[2024-05-25] MEDS ORDERED: KETOROLAC 10MG TABLET PO PRN (23:30)
[2024-05-26] MEDS: KETOROLAC 15MG/ML VIAL IV PRN (00:02)
[2024-05-26] MEDS ORDERED: ACETAMINOPHEN 325MG TABLET PO PRN ×2 (13:15)
[2024-05-26] MEDS ORDERED: DOCUSATE SODIUM 100MG CAPSULE PO PRN (13:15)
[2024-05-26] MEDS ORDERED: IPRATROPIUM/ALBUTEROL 0.5-3(2.5)MG/3ML NEB HHN PRN (13:15)
[2024-05-26 17:28] LABS: IRON 36 ug/dL (50-170)
[2024-05-26 17:31] LABS: CREATINE KINASE 45 IU/L (34-145); TOTAL IRON BINDING CAPACITY 198 ug/dl (250-425)
[2024-05-26 17:33] LABS: CREATINE KINASE MB FRACTION 1.2 ng/mL (0.5-3.6); FERRITIN 314 ng/mL (10-291)
[2024-05-26 17:35] LABS: FOLIC ACID (FOLATE) SERUM 13.09 ng/mL (>5.38); VITAMIN B12 SERUM 194 pg/mL (211-911)
[2024-05-26 18:12] LABS: TROPONIN I HIGH SENSITIVITY 48 ng/L (3.0-34)
[2024-05-26] MEDS: ONDANSETRON HCL 4MG/2ML INJ IV PRN (18:36)
[2024-05-26 21:54] VITALS: BP_SYST 154; BP_SYST 158; BP_DIAS 100; BP_DIAS 88; PULSE 75; PULSE 83; RESP 16; RESP 19; TEMP 98
[2024-05-26] MEDS: MORPHINE SULFATE 2 MG/ML INJ (NOT FOR IM USE) IV NR (22:43)
[2024-05-26 23:33] LABS: CLARITY URINE CLOUDY (CLEAR); COLOR URINE DARK YELLOW (YELLOW); GLUCOSE URINE NEGATIVE (NEGATIVE); KETONES URINE TRACE (NEGATIVE); LEUKOCYTE ESTERASE URINE 1+ (NEGATIVE); NITRITE URINE NEGATIVE (NEGATIVE); OCCULT BLOOD URINE TRACE (NEGATIVE); PROTEIN URINE 1+ (NEGATIVE); SPECIFIC GRAVITY URINE 1.026 (1.005-1.030)
[2024-05-26 23:45] LABS: *AMPHETAMINES SCREEN URINE NEGATIVE (NEGATIVE); *BARBITURATES SCREEN URINE NEGATIVE (NEGATIVE); *BENZODIAZEPINES SCREEN URINE NEGATIVE (NEGATIVE); *COCAINE SCREEN URINE PRESUMPTIVE POSITIVE (NEGATIVE); CANNABINOID URINE SCREEN NEGATIVE (NEGATIVE); ECSTASY MDMA SCREEN URINE NEGATIVE (NEGATIVE); METHADONE URINE SCREEN NEGATIVE (NEGATIVE); OPIATES URINE SCREEN PRESUMPTIVE POSITIVE (NEGATIVE); PHENCYCLIDINE URINE SCREEN NEGATIVE (NEGATIVE)
[2024-05-27] VITALS (10 sets, daily range): BP systolic 127–153; BP diastolic 79–90; PULSE 71–93; RESP 16–29; TEMP 97.8–98.5
[2024-05-27 00:22] LABS: SQUAMOUS EPITHELIAL CELL URINE FEW /lpf (RARE/1+)
[2024-05-27 00:23] LABS: BACTERIA URINE NONE SEEN
[2024-05-27 10:04] LABS: BASOPHILS % 0.6 % (0.0-2.0); EOSINOPHILS % 0.8 % (0.0-5.0); HEMATOCRIT. 29.1 % (36.0-48.0); HEMOGLOBIN. 9.6 g/dL (12.0-16.0); LYMPHOCYTES % 10.7 % (20.0-50.0); MEAN CORPUSCULAR HEMOGLOBIN 32.6 pg (28.0-32.0); MEAN CORPUSCULAR HGB CONC 32.8 g/dL (31.0-37.0); MEAN CORPUSCULAR VOLUME 99.5 fL (81.0-99.0); MEAN PLATELET VOLUME 8.2 fl (7.4-10.4); MONOCYTES % 10.8 % (2.0-8.0); NEUTROPHILS % 77.1 % (40.0-76.0); PLATELET 132 x1000/uL (130-400); RED BLOOD CELL COUNT 2.93 mill/uL (4.2-5.4); RED CELL DISTRIBUTION WIDTH 14.6 % (11.6-14.6); WHITE BLOOD COUNT 5.7 x1000/uL (4.5-11.0)
[2024-05-27] MEDS: CYANOCOBALAMIN 1000MCG/ML VIAL IM SCH (10:04)
[2024-05-27 11:02] LABS: CHLORIDE 105 mEq/L (98-107); POTASSIUM 4.1 mEq/L (3.5-5.1); SODIUM 137 mEq/L (136-145)
[2024-05-27 11:03] LABS: CALCIUM 8.9 mg/dL (8.7-10.4); CARBON DIOXIDE 26 mEq/L (21-32)
[2024-05-27 11:08] LABS: CREATININE 1.1 mg/dL (0.6-1.0); GLUCOSE 95 mg/dL (70-105); PROTEIN TOTAL 6.3 g/dL (6.0-8.3); UREA NITROGEN BLOOD 14 mg/dL (9-23)
[2024-05-27 11:09] LABS: ALANINE AMINOTRANSFERASE 31 IU/L (10-49); ALBUMIN 3.9 g/dL (3.2-4.8); ASPARTATE AMINOTRANSFERASE 24 IU/L (<34)
[2024-05-27 11:10] LABS: BILIRUBIN DIRECT 0.2 mg/dL (<=3.0); BILIRUBIN TOTAL 0.6 mg/dL (0.1-1.0); CREATINE KINASE 41 IU/L (34-145); PHOSPHORUS 2.6 mg/dL (2.5-4.9)
[2024-05-27] MEDS: FERROUS SULFATE 325MG TABLET PO SCH (12:53)
[2024-05-27] MEDS ORDERED: FERR-71 MT (17:26)
[2024-05-27] MEDS ORDERED: CYAN-50 MT (17:26)
[2024-05-28] VITALS: BP 148/84; PULSE 74; RESP 20; TEMP 98.6
[2024-05-28 04:00] VITALS: BP 138/81; PULSE 60; RESP 20; TEMP 97.8
[2024-05-28 08:00] VITALS: BP 135/84; PULSE 61; RESP 18; TEMP 97.8
[2024-05-28 12:00] VITALS: BP 145/72; PULSE 60; RESP 18; TEMP 97.2
[2024-05-28 14:46] VITALS: BP 145/72; PULSE 60; TEMP 97.2; O2SAT 100
== END 2024-05-28 17:38 | disposition home or self-care (01) | DRG 194 ==
LOC: ER 14:24 → EDBEDREQTM 20:02 → EDBEDREQ 20:02 → EDBEDREQSVC 05-26 00:47 → 5WST 05-26 03:57 → 5EST 05-27 00:38 → 8WST 05-27 18:35
PROVIDERS: ADMIT Internal Medicine; ATTEND Internal Medicine
DX: I11.0 Hypertensive heart disease with heart failure (principal); N17.9 Acute kidney failure, unspecified; I25.10 Atherosclerotic heart disease of native coronary artery without angina pectoris; I50.23 Acute on chronic systolic (congestive) heart failure; I48.91 Unspecified atrial fibrillation; E03.9 Hypothyroidism, unspecified; F41.9 Anxiety disorder, unspecified; I16.0 Hypertensive urgency; Z20.822 Contact with and (suspected) exposure to COVID-19; Z95.5 Presence of coronary angioplasty implant and graft; Z79.02 Long term (current) use of antithrombotics/antiplatelets; Z79.84 Long term (current) use of oral hypoglycemic drugs; Z79.899 Other long term (current) drug therapy; Z85.3 Personal history of malignant neoplasm of breast; Z88.1 Allergy status to other antibiotic agents; Z90.12 Acquired absence of left breast and nipple; Z95.810 Presence of automatic (implantable) cardiac defibrillator; Z59.01 Sheltered homelessness
CPT/HCPCS: 36415; 71045; 80048; 80053; 80076; 80305; 81003; 82550; 82553; 82607; 82728; 82746; 83540; 83550; 83735; 83880; 84100; 84484; 85025; 85379; 86850; 86900; 87077; 87186; 87426; 93005; 93306; 99291; C1893; J1885; J2270; J2405; J3420; J3475; J7030

== ENCOUNTER 2024-11-06 19:31 | Emergency (ER) | payer MEDICAID ==
[~2024-11-06] VITALS: Ht 165.1 cm; Wt 66.0 kg
[~2024-11-06 19:31] MED LIST changes: +CYAN-50 MT; +FERR-71 MT
[2024-11-06 19:41] VITALS: BP 132/87; PULSE 88; RESP 16; TEMP 98.2; O2SAT 99
== END 2024-11-06 21:40 | disposition left against medical advice (07) ==
LOC: ER 19:31
DX: S81.851A Open bite, right lower leg, initial encounter (principal); W54.0XXA Bitten by dog, initial encounter; Y93.89 Activity, other specified; Y92.89 Other specified places as the place of occurrence of the external cause; Y99.8 Other external cause status; Z53.21 Procedure and treatment not carried out due to patient leaving prior to being seen by health care provider

== ENCOUNTER 2025-01-05 15:44 | Emergency (ER) | payer MEDICAID ==
[~2025-01-05] VITALS: Ht 165.1 cm; Wt 66.0 kg
[2025-01-05 15:56] VITALS: BP 117/76; PULSE 80; RESP 18; TEMP 36.9; O2SAT 100
== END 2025-01-05 16:06 | disposition left against medical advice (07) ==
LOC: ER 15:50
DX: R07.9 Chest pain, unspecified (principal); Z53.21 Procedure and treatment not carried out due to patient leaving prior to being seen by health care provider

== ENCOUNTER 2025-04-15 17:24 | Emergency (ER) | payer MEDICAID ==
[~2025-04-15] VITALS: Ht 152.4 cm; Wt 46.0 kg
[~2025-04-15 17:24] MED LIST changes: -AMLO5TAB88 PO; -ATOR20TA PO; -CLOP-31 PO; -COR3 PO; -CYAN-50 MT; -FERR-71 MT; -FERR325T23 PO; -FOLI-43 PO; +FURO-151 MT; -FURO40TA5 PO; -LEVO50TA MT; +LEVO50TA8 PO; +LIP40 PO; -LISI-186 PO; -MULT-230 MT; -ROSU20TA2 PO; -SPIR25TA MT; +SPIR25TA PO; -THIA100T72 MT
[2025-04-15 17:28] VITALS: O2SAT 100
[2025-04-15 18:11] LABS: CLARITY URINE CLEAR (CLEAR); COLOR URINE YELLOW (YELLOW); GLUCOSE URINE NEGATIVE (NEGATIVE); KETONES URINE NEGATIVE (NEGATIVE); LEUKOCYTE ESTERASE URINE NEGATIVE (NEGATIVE); NITRITE URINE NEGATIVE (NEGATIVE); OCCULT BLOOD URINE NEGATIVE (NEGATIVE); PH URINE 5.5 (4.5-8.0); PROTEIN URINE NEGATIVE (NEGATIVE); UROBILINOGEN URINE 0.2 E.U./dL (0.2-1.0)
[2025-04-15 18:24] LABS: BASOPHILS % 0.8 % (0.0-2.0); EOSINOPHILS % 1.9 % (0.0-5.0); HEMATOCRIT. 39.3 % (36.0-48.0); HEMOGLOBIN. 13.2 g/dL (12.0-16.0); LYMPHOCYTES % 34.8 % (20.0-50.0); MEAN CORPUSCULAR HEMOGLOBIN 32.3 pg (28.0-32.0); MEAN CORPUSCULAR HGB CONC 33.6 g/dL (31.0-37.0); MEAN CORPUSCULAR VOLUME 96.1 fL (81.0-99.0); MEAN PLATELET VOLUME 8.9 fl (7.4-10.4); MONOCYTES % 6.9 % (2.0-8.0); NEUTROPHILS % 55.6 % (40.0-76.0); PLATELET 271 x1000/uL (130-400); RED BLOOD CELL COUNT 4.08 mill/uL (4.2-5.4); RED CELL DISTRIBUTION WIDTH 15.8 % (11.6-14.6)
[2025-04-15 18:29] LABS: POTASSIUM 4.5 mEq/L (3.5-5.1)
[2025-04-15 18:29] LABS: *AMPHETAMINES SCREEN URINE NEGATIVE (NEGATIVE); *BARBITURATES SCREEN URINE NEGATIVE (NEGATIVE); *BENZODIAZEPINES SCREEN URINE NEGATIVE (NEGATIVE); *COCAINE SCREEN URINE PRESUMPTIVE POSITIVE (NEGATIVE); CANNABINOID URINE SCREEN NEGATIVE (NEGATIVE); ECSTASY MDMA SCREEN URINE NEGATIVE (NEGATIVE); METHADONE URINE SCREEN NEGATIVE (NEGATIVE); OPIATES URINE SCREEN NEGATIVE (NEGATIVE); PHENCYCLIDINE URINE SCREEN NEGATIVE (NEGATIVE)
[2025-04-15 18:31] LABS: CALCIUM 9.7 mg/dL (8.7-10.4)
[2025-04-15 18:35] VITALS: BP 122/81; PULSE 73; RESP 13; TEMP 36.9; O2SAT 100
[2025-04-15 18:35] LABS: CREATININE 1.2 mg/dL (0.6-1.0)
[2025-04-15 18:57] LABS: INR 1.1; PROTHROMBIN TIME 11.6 sec (9.6-11.0)
== END 2025-04-15 17:56 | disposition left against medical advice (07) ==
LOC: ER 17:24
DX: S50.01XA Contusion of right elbow, initial encounter (principal); S09.90XA Unspecified injury of head, initial encounter; F10.129 Alcohol abuse with intoxication, unspecified; I11.0 Hypertensive heart disease with heart failure; E03.9 Hypothyroidism, unspecified; I50.9 Heart failure, unspecified; Z79.899 Other long term (current) drug therapy; Z88.1 Allergy status to other antibiotic agents; Z88.5 Allergy status to narcotic agent; Y90.9 Presence of alcohol in blood, level not specified
CPT/HCPCS: 80305; 80048; 81003; 80320; 85025; 85610; 36415; 71045; 73080; 70450; 93005; 99285; Z7610 ×2; G0480